=== PATIENT | female | born 1950 | race Caucasian/White ===

== ENCOUNTER 2021-11-29 09:20 | Inpatient (IN) | payer MEDICARE, OTHER ==
[~2021-11-29] VITALS: Ht 157.5 cm; Wt 68.2 kg
[~2021-11-29 09:20] MED LIST: ACET325T58 PO; ALBU18HF2 IH; ALEN1TAB PO; ALPR-624 PO; ASPI-1265 PO; BUDE10.23 IH; CHOL100044 PO; CYAN500T71 PO; DOCU100C41 PO; LEVE500T PO; LEVO100T46 PO; LISI1TAB51 PO; LOP25T PO; LORA10TA65 PO; OMEG500C PO; POTA-82 PO; PRAV80TA3 PO; SPIIN IH; TRAM50TA2 PO; VALA-7 PO
[2021-11-29] MEDS ORDERED: normal saline 1000ML IV soln IVB ONE (09:45)
[2021-11-29] MEDS: metoprolol tartrate 1mg/ml inj IV SCH ×4 (10:15→11:41)
[2021-11-29 10:32] LABS: BASOPHILS # (AUTO) 0.1 X10'3 (0-0.2); BASOPHILS % (AUTO) 0.7 % (0-1); EOSINOPHILS # (AUTO) 0.1 X10'3 (0-0.9); EOSINOPHILS % (AUTO) 0.7 % (0-6); HEMATOCRIT 35.1 % (35.0-45.0); HEMOGLOBIN 11.8 g/dl (12.0-16.0); LYMPHOCYTES # (AUTO) 1.1 X10'3 (1.1-4.8); LYMPHOCYTES % (AUTO) 11.1 % (21-51); MEAN CORPUSCULAR HEMOGLOBIN 30.5 PG (27.0-31.0); MEAN CORPUSCULAR HGB CONC 33.6 g/dL (33.0-36.5); MEAN CORPUSCULAR VOLUME 90.8 FL (78-98); MEAN PLATELET VOLUME 6.8 FL (7.4-10.4); MONOCYTES # (AUTO) 0.6 X10'3 (0-0.9); MONOCYTES % (AUTO) 6.1 % (2-12); NEUTROPHILS % (AUTO) 81.4 % (42-75); PLATELET COUNT 201 X10'3 (140-440); RED BLOOD COUNT 3.87 X10'6 (4.20-5.60); RED CELL DISTRIBUTION WIDTH 13.8 % (11.5-14.5); WHITE BLOOD COUNT 9.8 X10'3 (4.5-11.0)
[2021-11-29 10:51] LABS: ALANINE AMINOTRANSFERASE 35 U/L (12-78); ALBUMIN 3.3 G/DL (3.4-5.0); ALBUMIN/GLOBULIN RATIO 0.8 (1.1-1.5); ALKALINE PHOSPHATASE 103 IU/L (46-116); ANION GAP 8 (8-16); ASPARTATE AMINO TRANSFERASE 38 U/L (10-37); BILIRUBIN,TOTAL 0.3 MG/DL (0.1-1.0); BLOOD UREA NITROGEN 18 MG/DL (7-18); CALCIUM 9.8 MG/DL (8.5-10.1); CHLORIDE 105 MMOL/L (99-107); CREATININE 1.06 MG/DL (0.40-0.90); GLUCOSE 101 MG/DL (70-104); POTASSIUM 4.4 MMOL/L (3.5-5.1); SODIUM 140 MMOL/L (135-145); TOTAL CARBON DIOXIDE 27.4 MMOL/L (24-32); TOTAL PROTEIN 7.5 G/DL (6.4-8.2); eGFR 51 ML/MIN
[2021-11-29] MEDS ORDERED: LORazepam 0.5 MG tablet PO ONE (12:50)
--- NOTE | 2021-11-29 13:55 | NUR ---
dr valentino at bedside ,verbal orders to give lasix 40 mg iv once for fluid overload,give home med metoprol 25 mg po once ,informed MD that pt received total of 15 mg iv metoprol.as per its okay to give metoprol 25 mg po because that will maintain the pt HR.
[2021-11-29] MEDS ORDERED: metoprolol tartrate 50mg tablet PO ONE (14:00)
[2021-11-29] MEDS ORDERED: furosemide 10 MG/1 ML 10ml inj IV ONE (14:00)
[2021-11-29] MEDS ORDERED: metoprolol tartrate 25mg tablet PO ONE (14:05)
--- NOTE | 2021-11-29 14:05 | NUR ---
SBAR TO LEIGH BLISS.
[2021-11-29] MEDS ORDERED: magnesium 4gm in 100ml NS 100 ML IV PRN (14:20)
[2021-11-29] MEDS ORDERED: potassium CL 10mEq/100ml bag 100 ML IV PRN (14:20)
[2021-11-29] MEDS ORDERED: magnesium hydroxide 30ml (MOM) UD suspension PO PRN (14:20)
[2021-11-29] MEDS ORDERED: mag hydrox/Alum hydrox/simeth 30ml oral suspension PO PRN (14:20)
[2021-11-29] MEDS ORDERED: PERFLUTREN PROTEIN-A MICROSPHR (Optison) 0.22 MG/ML 3ML VIAL IV ONE (14:20)
[2021-11-29] MEDS ORDERED: magnesium 2GM in 50ml NS 50 ML IV PRN (14:20)
[2021-11-29] MEDS ORDERED: POTASSIUM BICARB 20meq eff tab 20 MEQ TABLET.EFF PO PRN ×2 (14:20)
[2021-11-29] MEDS ORDERED: ondansetron/PF 4mg/2ml inj IV PRN (14:20)
[2021-11-29] MEDS ORDERED: acetaminophen 325mg tablet PO PRN (14:20)
[2021-11-29] MEDS ORDERED: magnesium Cl slow-release 64mg tablet PO PRN (14:20)
[2021-11-29] MEDS ORDERED: METO50TA16 PO (14:29)
[2021-11-29] MEDS ORDERED: ALPR0.252 PO (14:29)
[2021-11-29] MEDS ORDERED: BUDE10.22 PO (14:29)
[2021-11-29] MEDS ORDERED: LEVO75TA7 PO (14:29)
[2021-11-29] MEDS ORDERED: LOSA1TAB36 PO (14:29)
[2021-11-29] MEDS ORDERED: FISH1CAP17 PO (14:33)
[2021-11-29] MEDS ORDERED: ASCO100T12 PO (14:40)
[2021-11-29] MEDS ORDERED: VITE1000C PO (14:40)
[2021-11-29] MEDS ORDERED: CALC600T26 PO (14:40)
[2021-11-29] MEDS ORDERED: ZINC100T2 PO (14:41)
[2021-11-29] MEDS ORDERED: MAGN400C PO (14:41)
[2021-11-29] MEDS ORDERED: MULT-1085 PO (14:41)
[2021-11-29] MEDS ORDERED: albuterol 2.5 MG/3 ML nebule NEB PRN (15:10)
[2021-11-29] MEDS ORDERED: ALPRAZolam 0.25mg tablet PO PRN (15:10)
--- NOTE | 2021-11-29 18:25 | NUR ---
ASSUMED CARE OF PATIENT AFTER RECIEVING REPORT. PT. RESTING QUIETLY IN GURNEY WITHOUT DISTRESS AT THIS TIME.
[2021-11-29] MEDS: K and/or MAG REPLACEMENT MC SCH (20:00)
[2021-11-29] MEDS ORDERED: metoprolol tartrate 25mg tablet PO SCH (20:00)
--- NOTE | 2021-11-29 20:30 | NUR ---
PATIENT IN MODERATE RESPIRATORY DISTRESS. SITTING UP IN [facility], ABLE TO SPEAK 5-6 WORDS AT A TIME, REQUESTING RT TREATMENT. RT PAGED. STAYED WITH PT. AND REASSURED UNTIL RT ARRIVED AND TREATMENT GIVEN.
[2021-11-29] MEDS: budesonide 0.5mg/2ml UD nebule IH SCH (20:31)
[2021-11-29] MEDS: albuterol 2.5 MG/3 ML nebule NEB SCH (20:31)
[2021-11-29] MEDS: docusate sod 100mg capsule PO SCH (20:35)
[2021-11-29] MEDS: furosemide 10 MG/1 ML 10ml inj IV SCH (20:35)
[2021-11-29] MEDS: metoprolol tartrate 50mg tablet PO SCH (20:40)
[2021-11-29] MEDS: enoxaparin 30mg/0.3ml syringe SQ SCH (20:41)
[2021-11-30] MEDS: pravastatin 40mg tablet PO SCH ×2 (00:34→20:27)
[2021-11-30] MEDS: albuterol 2.5 MG/3 ML nebule NEB SCH ×4 (02:39→20:39)
--- NOTE | 2021-11-30 06:53 | NUR ---
Report given to RUTHY Beauchamp in PCU.
--- NOTE | 2021-11-30 07:07 | NUR ---
Problems reprioritized. Patient report given, questions answered & plan of care reviewed with Kendall BLISS in ER. Pt arrived to unit. settled into room.. Addendum: 11/30/21 at 0724 by Azul Rain RN Amended: Links added.
[2021-11-30 08:00] VITALS: BP 121/83
[2021-11-30] MEDS: K and/or MAG REPLACEMENT MC SCH ×2 (08:00→20:52)
[2021-11-30] MEDS ORDERED: ZINC GLUCONATE 100 MG PO SCH (08:00)
[2021-11-30] MEDS: OMEGA-3/DHA/EPA/FISH OIL 1 EACH CAPSULE.DR PO SCH (08:00)
[2021-11-30] MEDS: multivitamins, therapeutics tablet PO SCH (08:00)
[2021-11-30] MEDS ORDERED: ASCORBIC ACID 100 MG PO SCH (08:00)
[2021-11-30] MEDS: budesonide 0.5mg/2ml UD nebule IH SCH ×2 (08:21→20:39)
[2021-11-30] MEDS: HYDROchlorothiazide 12.5mg capsule PO SCH (08:35)
[2021-11-30] MEDS: cholecalciferol (vitamin D3) 1,000 unit (25mcg) tablet PO SCH (08:35)
[2021-11-30] MEDS: losartan 50mg tablet PO SCH (08:36)
[2021-11-30] MEDS: metoprolol tartrate 50mg tablet PO SCH (08:37)
[2021-11-30] MEDS: docusate sod 100mg capsule PO SCH ×2 (08:37→20:26)
[2021-11-30] MEDS: magnesium oxide 400mg tablet PO SCH (08:38)
[2021-11-30] MEDS: cyanocobalamin 500mcg tablet PO SCH (08:38)
[2021-11-30] MEDS: calcium carbonate 500mg tablet PO SCH (08:38)
[2021-11-30] MEDS: enoxaparin 30mg/0.3ml syringe SQ SCH (08:40)
[2021-11-30] MEDS: furosemide 10 MG/1 ML 10ml inj IV SCH ×2 (08:40→22:13)
[2021-11-30] MEDS: levoTHYROXINE 75mcg tablet PO SCH (08:48)
[2021-11-30 09:18] LABS: BASOPHILS # (AUTO) 0.1 X10'3 (0-0.2); BASOPHILS % (AUTO) 0.8 % (0-1); EOSINOPHILS # (AUTO) 0.2 X10'3 (0-0.9); EOSINOPHILS % (AUTO) 3.3 % (0-6); HEMATOCRIT 35.8 % (35.0-45.0); HEMOGLOBIN 11.7 g/dl (12.0-16.0); LYMPHOCYTES # (AUTO) 1.6 X10'3 (1.1-4.8); LYMPHOCYTES % (AUTO) 21.6 % (21-51); MEAN CORPUSCULAR HEMOGLOBIN 30.2 PG (27.0-31.0); MEAN CORPUSCULAR HGB CONC 32.8 g/dL (33.0-36.5); MEAN CORPUSCULAR VOLUME 92.1 FL (78-98); MEAN PLATELET VOLUME 8.4 FL (7.4-10.4); MONOCYTES # (AUTO) 0.6 X10'3 (0-0.9); MONOCYTES % (AUTO) 7.4 % (2-12); NEUTROPHILS # (AUTO) 5.1 X10'3 (1.8-7.7); NEUTROPHILS % (AUTO) 66.9 % (42-75); PLATELET COUNT 203 X10'3 (140-440); RED BLOOD COUNT 3.88 X10'6 (4.20-5.60); WHITE BLOOD COUNT 7.6 X10'3 (4.5-11.0)
[2021-11-30 09:46] LABS: ALANINE AMINOTRANSFERASE 29 U/L (12-78); ALBUMIN 3.3 G/DL (3.4-5.0); ALBUMIN/GLOBULIN RATIO 0.8 (1.1-1.5); ALKALINE PHOSPHATASE 93 IU/L (46-116); ANION GAP 8 (8-16); ASPARTATE AMINO TRANSFERASE 30 U/L (10-37); BILIRUBIN,TOTAL 0.5 MG/DL (0.1-1.0); BLOOD UREA NITROGEN 19 MG/DL (7-18); BUN/CREATININE RATIO 17.8 (6.6-38.0); CALCIUM 9.3 MG/DL (8.5-10.1); CHLORIDE 101 MMOL/L (99-107); CREATININE 1.07 MG/DL (0.40-0.90); GLUCOSE 114 MG/DL (70-104); MAGNESIUM 1.9 MG/DL (1.5-2.4); POTASSIUM 3.3 MMOL/L (3.5-5.1); SODIUM 139 MMOL/L (135-145); TOTAL CARBON DIOXIDE 30.1 MMOL/L (24-32); TOTAL PROTEIN 7.4 G/DL (6.4-8.2); eGFR 50 ML/MIN
[2021-11-30] MEDS ORDERED: metoprolol tartrate 12.5mg (1/2 tablet) PO ONE (10:20)
[2021-11-30 11:29] VITALS: BP 94/53
[2021-11-30 15:00] VITALS: BP 103/70
--- NOTE | 2021-11-30 18:18 | NUR ---
Problems reprioritized. Patient report given, questions answered & plan of care reviewed with Suha BLISS. bedside report completed. Pt eating diner. Addendum: 11/30/21 at 1819 by Azul Rain RN Amended: Links added.
--- NOTE | 2021-11-30 18:24 | NUR ---
Patient in room PCU 3025. I have received report from Azul BLISS and had the opportunity to ask questions and assume patient care.
[2021-11-30] MEDS ORDERED: metoprolol tartrate 50mg tablet PO SCH (20:00)
[2021-11-30] MEDS: apixaban 5mg tablet PO SCH (20:25)
[2021-11-30] MEDS ORDERED: metoprolol tartrate 25mg tablet PO SCH (20:40)
[2021-12-01] MEDS: albuterol 2.5 MG/3 ML nebule NEB SCH ×3 (03:00→14:08)
[2021-12-01 06:00] VITALS: BP 98/54
--- NOTE | 2021-12-01 06:23 | NUR ---
Problems reprioritized. Patient report given, questions answered & plan of care reviewed with Azul BLISS.
--- NOTE | 2021-12-01 06:35 | NUR ---
Patient in room PCU 3025. I have received report from Kalani BLISS and had the opportunity to ask questions and assume patient care.Bedside report completed. Pt sleeping No distress, Call light in reach. Addendum: 12/01/21 at 0636 by Azul Rain RN Amended: Links added.
[2021-12-01 07:34] LABS: BASOPHILS % (AUTO) 0.7 % (0-1); EOSINOPHILS # (AUTO) 0.3 X10'3 (0-0.9); EOSINOPHILS % (AUTO) 5.3 % (0-6); HEMATOCRIT 36.7 % (35.0-45.0); HEMOGLOBIN 11.9 g/dl (12.0-16.0); LYMPHOCYTES # (AUTO) 1.5 X10'3 (1.1-4.8); LYMPHOCYTES % (AUTO) 24.4 % (21-51); MEAN CORPUSCULAR HGB CONC 32.5 g/dL (33.0-36.5); MEAN CORPUSCULAR VOLUME 92.2 FL (78-98); MONOCYTES # (AUTO) 0.6 X10'3 (0-0.9); MONOCYTES % (AUTO) 10.1 % (2-12); NEUTROPHILS # (AUTO) 3.7 X10'3 (1.8-7.7); NEUTROPHILS % (AUTO) 59.5 % (42-75); PLATELET COUNT 248 X10'3 (140-440); RED BLOOD COUNT 3.98 X10'6 (4.20-5.60); WHITE BLOOD COUNT 6.2 X10'3 (4.5-11.0)
[2021-12-01 07:44] LABS: ALANINE AMINOTRANSFERASE 26 U/L (12-78); ALBUMIN 3.2 G/DL (3.4-5.0); ALBUMIN/GLOBULIN RATIO 0.8 (1.1-1.5); ALKALINE PHOSPHATASE 89 IU/L (46-116); ANION GAP 3 (8-16); ASPARTATE AMINO TRANSFERASE 26 U/L (10-37); BILIRUBIN,TOTAL 0.5 MG/DL (0.1-1.0); BLOOD UREA NITROGEN 23 MG/DL (7-18); BUN/CREATININE RATIO 21.1 (6.6-38.0); CHLORIDE 98 MMOL/L (99-107); CREATININE 1.09 MG/DL (0.40-0.90); GLUCOSE 109 MG/DL (70-104); MAGNESIUM 2.2 MG/DL (1.5-2.4); POTASSIUM 3.9 MMOL/L (3.5-5.1); SODIUM 136 MMOL/L (135-145); TOTAL CARBON DIOXIDE 34.7 MMOL/L (24-32); TOTAL PROTEIN 7.3 G/DL (6.4-8.2); eGFR 49 ML/MIN
[2021-12-01] MEDS: apixaban 5mg tablet PO SCH (07:58)
[2021-12-01] MEDS: HYDROchlorothiazide 12.5mg capsule PO SCH (07:59)
[2021-12-01] MEDS: losartan 50mg tablet PO SCH (07:59)
[2021-12-01] MEDS: levoTHYROXINE 75mcg tablet PO SCH (08:01)
[2021-12-01] MEDS: cyanocobalamin 500mcg tablet PO SCH (08:03)
[2021-12-01] MEDS: multivitamins, therapeutics tablet PO SCH (08:03)
[2021-12-01] MEDS: cholecalciferol (vitamin D3) 1,000 unit (25mcg) tablet PO SCH (08:03)
[2021-12-01] MEDS: magnesium oxide 400mg tablet PO SCH (08:03)
[2021-12-01] MEDS: calcium carbonate 500mg tablet PO SCH (08:04)
[2021-12-01] MEDS: OMEGA-3/DHA/EPA/FISH OIL 1 EACH CAPSULE.DR PO SCH (08:04)
[2021-12-01] MEDS: docusate sod 100mg capsule PO SCH (08:04)
[2021-12-01] MEDS: furosemide 10 MG/1 ML 10ml inj IV SCH (08:06)
[2021-12-01] MEDS: budesonide 0.5mg/2ml UD nebule IH SCH (08:22)
[2021-12-01 11:00] VITALS: BP 113/56
--- NOTE | 2021-12-01 12:35 | NUR ---
PAGER ID: [phone] MESSAGE: [id number] Homer O2 sat 92 on 2L NC. HR [address] Scott is aware of her high HR and is not worried. She feels she could go home today.
[2021-12-01] MEDS ORDERED: LOP25T PO (12:53)
[2021-12-01] MEDS ORDERED: APIX5TAB3 PO (12:53)
[2021-12-01] MEDS ORDERED: FURO40TA4 PO (12:53)
[2021-12-01] MEDS ORDERED: PRED10TA23 PO (12:53)
[2021-12-01] MEDS ORDERED: POTA-207 PO (12:53)
[2021-12-01] MEDS ORDERED: metoprolol tartrate 25mg tablet PO SCH (14:02)
--- NOTE | 2021-12-01 14:54 | NUR ---
All written and verbal orders for D/C given, All questions answered. Pt D/C to home. Pt stated she had all belongings, all credit cards accounted for. FWW delivered to room. Pt had boyfriend bring her home o2 tank. Pt left via W/C. Addendum: 12/01/21 at 1458 by Azul Rain RN Amended: Links added.
== END 2021-12-01 14:58 | disposition home health service (06) | DRG 280 ==
LOC: ER 09:20 → ED HOLD 14:23 → PCU 3S 11-30 07:07
PROVIDERS: ADMIT Family Medicine; ATTEND Family Medicine
DX: I11.0 Hypertensive heart disease with heart failure (principal); I21.A1 Myocardial infarction type 2; I50.23 Acute on chronic systolic (congestive) heart failure; J96.10 Chronic respiratory failure, unspecified whether with hypoxia or hypercapnia; E03.9 Hypothyroidism, unspecified; E78.5 Hyperlipidemia, unspecified; G40.909 Epilepsy, unspecified, not intractable, without status epilepticus; I48.91 Unspecified atrial fibrillation; J44.9 Chronic obstructive pulmonary disease, unspecified; M81.0 Age-related osteoporosis without current pathological fracture; Z82.49 Family history of ischemic heart disease and other diseases of the circulatory system; Z83.3 Family history of diabetes mellitus; Z87.891 Personal history of nicotine dependence; Z86.73 Personal history of transient ischemic attack (TIA), and cerebral infarction without residual deficits; Z88.2 Allergy status to sulfonamides; Z88.8 Allergy status to other drugs, medicaments and biological substances
CPT/HCPCS: 36415; 71045; 80053; 83735; 83880; 84484; 85025; 93005; 93306; 94640; 94760; 96374; 96375; 96376; 97161; 97530; 99285; A4615; G0378; J1650; J1940; J3490; J7030

== ENCOUNTER 2022-04-12 20:47 | Inpatient (IN) | payer MEDICARE, OTHER ==
[~2022-04-12] VITALS: Ht 165.1 cm; Wt 77.7 kg
[~2022-04-12 20:47] MED LIST changes: -ACET325T58 PO; -ALEN1TAB PO; -ALPR-624 PO; +ALPR0.252 PO; +APIX5TAB3 PO; +ASCO100T12 PO; -ASPI-1265 PO; +BUDE10.22 PO; -BUDE10.23 IH; +CALC600T26 PO; -DOCU100C41 PO; +FISH1CAP17 PO; -LEVE500T PO; -LEVO100T46 PO; +LEVO75TA7 PO; -LISI1TAB51 PO; -LORA10TA65 PO; +LOSA1TAB36 PO; +MAGN400C PO; +MULT-1085 PO; -OMEG500C PO; -POTA-82 PO; -SPIIN IH; -TRAM50TA2 PO; -VALA-7 PO; +ZINC100T2 PO
[2022-04-12] MEDS ORDERED: nitroGLYCERIN-Tridil 50MG/D5W 250 ML IV PRN (20:55)
[2022-04-12] MEDS ORDERED: methylPREDNISolone sod succ 125mg/2ml vial IV ONE (20:55)
[2022-04-12] MEDS ORDERED: furosemide 10 MG/1 ML 10ml inj IV ONE (20:55)
[2022-04-12] MEDS ORDERED: temazepam 15mg capsule PO PRN (21:00)
[2022-04-12 21:09] LABS: BASOPHILS # (AUTO) 0.1 X10'3 (0-0.2); BASOPHILS % (AUTO) 0.7 % (0-1); EOSINOPHILS # (AUTO) 0.3 X10'3 (0-0.9); EOSINOPHILS % (AUTO) 1.6 % (0-6); HEMOGLOBIN 11.9 g/dl (12.0-16.0); LYMPHOCYTES # (AUTO) 4.1 X10'3 (1.1-4.8); LYMPHOCYTES % (AUTO) 23.3 % (21-51); MEAN CORPUSCULAR HEMOGLOBIN 30.7 PG (27.0-31.0); MEAN CORPUSCULAR HGB CONC 32.9 g/dL (33.0-36.5); MEAN CORPUSCULAR VOLUME 93.3 FL (78-98); MEAN PLATELET VOLUME 7.2 FL (7.4-10.4); MONOCYTES # (AUTO) 1.1 X10'3 (0-0.9); MONOCYTES % (AUTO) 6.5 % (2-12); NEUTROPHILS # (AUTO) 11.8 X10'3 (1.8-7.7); NEUTROPHILS % (AUTO) 67.9 % (42-75); PLATELET COUNT 398 X10'3 (140-440); RED BLOOD COUNT 3.86 X10'6 (4.20-5.60); RED CELL DISTRIBUTION WIDTH 14.2 % (11.5-14.5); WHITE BLOOD COUNT 17.4 X10'3 (4.5-11.0)
[2022-04-12 21:19] LABS: ALANINE AMINOTRANSFERASE 50 U/L (12-78); ALBUMIN 3.6 G/DL (3.4-5.0); ALBUMIN/GLOBULIN RATIO 0.9 (1.1-1.5); ALKALINE PHOSPHATASE 111 IU/L (46-116); ANION GAP 10 (8-16); ASPARTATE AMINO TRANSFERASE 47 U/L (10-37); BILIRUBIN,TOTAL 0.4 MG/DL (0.1-1.0); BLOOD UREA NITROGEN 22 MG/DL (7-18); BUN/CREATININE RATIO 16.9 (6.6-38.0); CALCIUM 9.9 MG/DL (8.5-10.1); CHLORIDE 107 MMOL/L (99-107); GLUCOSE 270 MG/DL (70-104); POTASSIUM 4.6 MMOL/L (3.5-5.1); SODIUM 141 MMOL/L (135-145); TOTAL PROTEIN 7.7 G/DL (6.4-8.2); eGFR 40 ML/MIN
--- NOTE | 2022-04-12 22:02 | NUR ---
Howie Olson family member # [phone]
[2022-04-12] MEDS ORDERED: metoprolol tartrate 1mg/ml inj IV ONE (22:50)
[2022-04-12] MEDS ORDERED: CefTRIAXone/D5W-Rocephin 1gm 50 ML IV ONE (22:50)
[2022-04-12] MEDS ORDERED: metoprolol tartrate 25mg tablet PO ONE (22:55)
[2022-04-12] MEDS ORDERED: potassium Cl 40MEQ/1/2NS 520ml 520 ML IV PRN (23:30)
[2022-04-12] MEDS ORDERED: magnesium 4gm in 100ml NS 100 ML IV PRN (23:30)
[2022-04-12] MEDS ORDERED: magnesium Cl slow-release 64mg tablet PO PRN (23:30)
[2022-04-12] MEDS ORDERED: potassium Cl 20 mEq SR tablet PO PRN ×2 (23:30)
[2022-04-12 23:34] LABS: CLARITY,URINE SLIGHTLY CLOUDY (Clear); COLOR,URINE YELLOW (Yellow); GLUCOSE, URINE NEGATIVE (Neg); KETONES,URINE NEGATIVE (Neg); LEUKOCYTE ESTERASE ,URINE SMALL (Neg); NITRITES, URINE NEGATIVE (Neg); OCCULT BLOOD,URINE SMALL (Neg); PH,URINE 5.5 (4.8-8.0); PROTEIN,URINE 30 mg/dl (Neg); UROBILINOGEN,URINE 0.2 E.U/dL (0.2-1.0)
[2022-04-12 23:42] LABS: UA COLLECTION TYPE CLN CATCH MIDSTREAM
[2022-04-12 23:46] LABS: RBC,URINE 0-2 /HPF (0-2); SQUAMOUS EPITHELIAL CELL,UR FEW /LPF (FEW)
[2022-04-12 23:47] LABS: BACTERIA,URINE FEW /HPF (Neg); HYALINE CASTS 0-3 /LPF (NEGATIVE); MUCUS STRANDS FEW /LPF (Neg); TRANSITIONAL EPI CELLS,URINE FEW /HPF; WBC CLUMPS,URINE FEW /HPF (NEGATIVE)
[2022-04-13] VITALS (11 sets, daily range): BP systolic 90–143; BP diastolic 60–87
[2022-04-13] MEDS ORDERED: aspirin 81mg tab.chew PO ONE (00:30)
--- NOTE | 2022-04-13 01:24 | NUR ---
TERRY ID: [id number] MESSAGE: DR. SANTIAGO PLEASE CALL TRACE AT [phone] REGARDING NEW PT, CLEMENTE MULLEN IN 3018 WITH CRITICAL TROPONINS. NO CP THOUGH AND CHF/AFIB HX. MATTI GOT ASA IN ER CALL [phone]
--- NOTE | 2022-04-13 01:25 | NUR ---
Patient arrived from ER via gurney at . Patient placed in bed with the head of the bed in high fowlers position. Patient alert and oriented times four. Call light within reach and all personal belongings within reach.
--- NOTE | 2022-04-13 01:33 | NUR ---
Received one time order for wt based Lovenox from Dr. Villegas since she has critical troponin and MD is aware of the troponin numbers.
[2022-04-13] MEDS ORDERED: enoxaparin 80mg/0.8ml syringe SUBCUT ONE (01:35)
[2022-04-13] MEDS: ALPRAZolam 0.25mg tablet PO PRN ×2 (02:17→22:38)
--- NOTE | 2022-04-13 05:20 | NUR ---
Patient in bed with the head of the bed elevated on bipap, resting with her eyes closed. Patient has no signs or symptoms of distress. Call light within reach and all personal belongings within reach.
--- NOTE | 2022-04-13 07:01 | NUR ---
Patient in room PCU 3018. I have received report from RUTHY VILLALPANDO, and had the opportunity to ask questions and assume patient care.
[2022-04-13] MEDS: heparin 10,000 units/1 ML INJ IV ONE ×2 (07:20→23:20)
[2022-04-13] MEDS ORDERED: heparin 10,000 units/1 ML INJ IV PRN (07:20)
[2022-04-13] MEDS ORDERED: heparin 10,000 units/1 ML INJ IV ONE (07:25)
[2022-04-13] MEDS: K and/or MAG REPLACEMENT MC SCH ×2 (08:00→20:00)
[2022-04-13 08:01] LABS: BASOPHILS % (AUTO) 0.2 % (0-1); EOSINOPHILS % (AUTO) 0 % (0-6); HEMATOCRIT 33.7 % (35.0-45.0); HEMOGLOBIN 11.3 g/dl (12.0-16.0); LYMPHOCYTES # (AUTO) 0.6 X10'3 (1.1-4.8); MEAN CORPUSCULAR HEMOGLOBIN 30.8 PG (27.0-31.0); MEAN CORPUSCULAR HGB CONC 33.5 g/dL (33.0-36.5); MEAN CORPUSCULAR VOLUME 92.1 FL (78-98); MONOCYTES # (AUTO) 0.1 X10'3 (0-0.9); MONOCYTES % (AUTO) 1.2 % (2-12); NEUTROPHILS # (AUTO) 7.3 X10'3 (1.8-7.7); NEUTROPHILS % (AUTO) 90.6 % (42-75); PLATELET COUNT 317 X10'3 (140-440); RED BLOOD COUNT 3.66 X10'6 (4.20-5.60); RED CELL DISTRIBUTION WIDTH 14.5 % (11.5-14.5)
[2022-04-13 08:08] LABS: APTT 28 SECONDS (22-32)
[2022-04-13 08:10] LABS: ALBUMIN 3.5 G/DL (3.4-5.0); ANION GAP 10 (8-16); BLOOD UREA NITROGEN 23 MG/DL (7-18); BUN/CREATININE RATIO 16.2 (6.6-38.0); CALCIUM 9.6 MG/DL (8.5-10.1); CHLORIDE 104 MMOL/L (99-107); CREATININE 1.42 MG/DL (0.40-0.90); GLUCOSE 187 MG/DL (70-104); POTASSIUM 4.7 MMOL/L (3.5-5.1); SODIUM 139 MMOL/L (135-145); TOTAL CARBON DIOXIDE 25.4 MMOL/L (24-32); eGFR 36 ML/MIN
[2022-04-13] MEDS: ipratropium/albuterol 3ml nebule NEB PRN ×2 (08:11→17:07)
[2022-04-13] MEDS: heparin 25,000 UNIT/250ml bag 250 ML IV PRN (09:09)
[2022-04-13] MEDS ORDERED: furosemide 40mg/4ml inj IV ONE (10:10)
[2022-04-13] MEDS: azithromycin/NS 500mg/250ml 250 ML IV SCH (10:42)
[2022-04-13] MEDS ORDERED: PERFLUTREN PROTEIN-A MICROSPHR (Optison) 0.22 MG/ML 3ML VIAL IV ONE (11:55)
[2022-04-13] MEDS ORDERED: amiodarone 150mg/dext, iso-os 100 ML IV ONE (15:20)
[2022-04-13] MEDS: amiodarone/D5 360MG/200ML BAG 200 ML IV SCH ×2 (15:49→20:01)
[2022-04-13] MEDS: metoprolol tartrate 1mg/ml inj IV SCH ×3 (16:05→16:30)
--- NOTE | 2022-04-13 19:01 | NUR ---
GIN POLE OPERATOR INFORMED THIS NURSE THAT PT'S HR WAS IN THE 130'S. DR. GARCIA'S CALL SERVICE REACHED AND THIS MESSAGE WAS LEFT. RECEIVED ORDERS: 250ML NS BOLUS, IV AMIODARONE BOLUS AND CONTINUE TO FOLLOW PROTOCOL, METOPROLOL 5MG IV TO BE GIVEN X3 - HOLD FOR BP <100, PBNP, 12 LEAD EKG. HEPARIN WAS STOPPED PT ONLY HAD 1 IV AND HEPARIN AND AMIODARONE ARE INCOMPATIBLE. SECOND IV, 20 GAUGE PLACED IN RFA. BP BOX ADDED TO PT'S TELE BOX.
--- NOTE | 2022-04-13 19:07 | NUR ---
Problems reprioritized. Patient report given, questions answered & plan of care reviewed with RUTHY VILLALPANDO.
[2022-04-13] MEDS: furosemide 40mg/4ml inj IV SCH (19:52)
[2022-04-13] MEDS: metoprolol tartrate 25mg tablet PO SCH (19:53)
[2022-04-13] MEDS: CefTRIAXone/D5W-Rocephin 1gm 50 ML IV SCH (22:00)
--- NOTE | 2022-04-13 22:48 | NUR ---
CALLED PHARMACY TO SEE WHEN RESULT WILL BE READY FOR 2244 PTT, SPOKE TO GARTH IN THE LAB AND SHE STATED THAT THE SPECIMEN IS PROCESSING AND WILL BE FINISHED SHORTLY
[2022-04-13] MEDS: heparin 10,000 units/1 ML INJ IV PRN (23:30)
[2022-04-14] VITALS (10 sets, daily range): BP systolic 117–129; BP diastolic 58–92
--- NOTE | 2022-04-14 05:27 | NUR ---
ballpoint pen assembly machine operator have collected ptt am lab and sent down to pharmacy per charge nurse ojse
[2022-04-14 05:47] LABS: BASOPHILS % (AUTO) 0.2 % (0-1); EOSINOPHILS % (AUTO) 0.1 % (0-6); HEMATOCRIT 34.4 % (35.0-45.0); HEMOGLOBIN 11.7 g/dl (12.0-16.0); LYMPHOCYTES # (AUTO) 1.6 X10'3 (1.1-4.8); LYMPHOCYTES % (AUTO) 14.5 % (21-51); MEAN CORPUSCULAR HGB CONC 33.9 g/dL (33.0-36.5); MEAN CORPUSCULAR VOLUME 91.6 FL (78-98); MEAN PLATELET VOLUME 6.8 FL (7.4-10.4); MONOCYTES # (AUTO) 0.9 X10'3 (0-0.9); MONOCYTES % (AUTO) 8.6 % (2-12); NEUTROPHILS # (AUTO) 8.4 X10'3 (1.8-7.7); NEUTROPHILS % (AUTO) 76.6 % (42-75); PLATELET COUNT 312 X10'3 (140-440); RED BLOOD COUNT 3.75 X10'6 (4.20-5.60); RED CELL DISTRIBUTION WIDTH 14.2 % (11.5-14.5)
--- NOTE | 2022-04-14 05:50 | NUR ---
Patient in bed with the head of the bed elevated to semi-fowlers position resting with her eyes closed. Patient has no signs symptoms of distress, call light within reach and all personal belongings within reach
[2022-04-14 05:54] LABS: ALBUMIN 3.5 G/DL (3.4-5.0); ANION GAP 4 (8-16); BLOOD UREA NITROGEN 30 MG/DL (7-18); BUN/CREATININE RATIO 23.6 (6.6-38.0); CALCIUM 9.1 MG/DL (8.5-10.1); CHLORIDE 103 MMOL/L (99-107); CREATININE 1.27 MG/DL (0.40-0.90); GLUCOSE 120 MG/DL (70-104); MAGNESIUM 2.3 MG/DL (1.5-2.4); POTASSIUM 4.2 MMOL/L (3.5-5.1); SODIUM 139 MMOL/L (135-145); TOTAL CARBON DIOXIDE 31.8 MMOL/L (24-32); eGFR 41 ML/MIN
--- NOTE | 2022-04-14 06:02 | NUR ---
Called lab to se if ptt specimen made it to the lab, Cynthia in the lab stated that its being processed.
--- NOTE | 2022-04-14 06:34 | NUR ---
Patient in room PCU 3018B. I have received report from Vega BLISS and had the opportunity to ask questions and assume patient care. Pt is laying semi fowlers in bed. Pt on 2L NC. No s/s of distress, no s/s of pain at this time. Pt on Heparin GTT running @ 1000u/hr, 10ml/hr. Will review resulted cardiac PTT results and titrate per protocol. Please see interventions. Pt on Amio GTT running @0.5mg, 16.67ml/hr. No s/s of abnormal rhythm changes, Pt tolerating well. BLL, call light wihin reach, frequently used items in reach, frequent rounidng, waterworks operator socks on. Will continue to [facility].
[2022-04-14] MEDS: heparin 10,000 units/1 ML INJ IV PRN ×2 (07:06→20:54)
[2022-04-14] MEDS: azithromycin/NS 500mg/250ml 250 ML IV SCH (08:00)
[2022-04-14] MEDS: K and/or MAG REPLACEMENT MC SCH ×2 (08:00→20:00)
[2022-04-14] MEDS: ipratropium/albuterol 3ml nebule NEB PRN ×2 (08:41→20:02)
[2022-04-14] MEDS: furosemide 40mg/4ml inj IV SCH ×2 (09:28→20:45)
[2022-04-14] MEDS: aspirin 81mg, enteric-coated 1 TAB TABLET.DR PO SCH (09:29)
[2022-04-14] MEDS: metoprolol tartrate 25mg tablet PO SCH ×2 (09:29→20:46)
[2022-04-14] MEDS: acetaminophen 325mg tablet PO PRN (09:29)
[2022-04-14] MEDS: atorvastatin 20mg tablet PO SCH (09:30)
[2022-04-14] MEDS ORDERED: furosemide 40mg/4ml inj IV ONE (10:30)
[2022-04-14] MEDS ORDERED: potassium Cl 20 mEq SR tablet PO ONE (10:30)
[2022-04-14] MEDS: ondansetron/PF 4mg/2ml inj IV PRN (12:08)
[2022-04-14] MEDS: heparin 25,000 UNIT/250ml bag 250 ML IV PRN ×2 (12:19→18:48)
--- NOTE | 2022-04-14 13:46 | NUR ---
1300 Cardiac ptt still pending at this time. Will continue to monitor. Addendum: 04/14/22 at 1414 by Sherron Gaston RN Crit aPTT of 93. Heparin GTT shut off per protocol.
--- NOTE | 2022-04-14 14:14 | NUR ---
PAGER ID: [phone] MESSAGE: Mirna Coronel 3018B- Body Technician aPTT of 92. Heparin GTT turned off per protocol. aPTT redraw in 2 hours. -Sherron EXT [phone]
[2022-04-14] MEDS: amiodarone/D5 360MG/200ML BAG 200 ML IV SCH ×2 (15:43→22:05)
--- NOTE | 2022-04-14 18:04 | NUR ---
aPTT lab result still pending.
--- NOTE | 2022-04-14 18:28 | NUR ---
Problems reprioritized. Patient report given, questions answered & plan of care reviewed with America BLISS.
[2022-04-14] MEDS ORDERED: APIX5TAB3 PO (18:31)
[2022-04-14] MEDS ORDERED: FURO40TA4 PO (18:32)
[2022-04-14] MEDS ORDERED: POTA-207 PO (18:32)
[2022-04-14] MEDS ORDERED: METO50TA16 PO (18:33)
[2022-04-14] MEDS ORDERED: ASPI-611 PO (19:00)
[2022-04-14] MEDS ORDERED: TIOT18CA3 IH (19:01)
[2022-04-14] MEDS ORDERED: OMEG-5 PO (19:02)
[2022-04-14] MEDS ORDERED: ASCO-139 PO (19:04)
[2022-04-14] MEDS ORDERED: FOLI0.4T14 PO (19:05)
[2022-04-14] MEDS ORDERED: [UNRECOGNIZED DRUG - OTHER] PO (19:05)
[2022-04-14] MEDS: ALPRAZolam 0.25mg tablet PO PRN (21:00)
[2022-04-14] MEDS: CefTRIAXone/D5W-Rocephin 1gm 50 ML IV SCH (22:34)
[2022-04-15] VITALS (9 sets, daily range): BP systolic 110–169; BP diastolic 49–87
[2022-04-15 01:23] LABS: APTT 76 SECONDS (22-32)
[2022-04-15] MEDS: heparin 25,000 UNIT/250ml bag 250 ML IV PRN ×3 (02:32→17:40)
[2022-04-15] MEDS: amiodarone/D5 360MG/200ML BAG 200 ML IV SCH ×4 (04:09→22:21)
--- NOTE | 2022-04-15 06:48 | NUR ---
Patient in room PCU 3018B. I have received report from America BLISS and had the opportunity to ask questions and assume patient care.
[2022-04-15 07:01] LABS: BASOPHILS % (AUTO) 0.5 % (0-1); EOSINOPHILS # (AUTO) 0.3 X10'3 (0-0.9); EOSINOPHILS % (AUTO) 3.2 % (0-6); HEMATOCRIT 37.5 % (35.0-45.0); HEMOGLOBIN 12.5 g/dl (12.0-16.0); LYMPHOCYTES # (AUTO) 1.7 X10'3 (1.1-4.8); LYMPHOCYTES % (AUTO) 18.2 % (21-51); MEAN CORPUSCULAR HEMOGLOBIN 30.8 PG (27.0-31.0); MEAN CORPUSCULAR HGB CONC 33.4 g/dL (33.0-36.5); MEAN CORPUSCULAR VOLUME 92.3 FL (78-98); MEAN PLATELET VOLUME 7.2 FL (7.4-10.4); MONOCYTES # (AUTO) 0.7 X10'3 (0-0.9); MONOCYTES % (AUTO) 7.6 % (2-12); NEUTROPHILS # (AUTO) 6.7 X10'3 (1.8-7.7); NEUTROPHILS % (AUTO) 70.5 % (42-75); PLATELET COUNT 359 X10'3 (140-440); RED BLOOD COUNT 4.06 X10'6 (4.20-5.60); RED CELL DISTRIBUTION WIDTH 14.4 % (11.5-14.5); WHITE BLOOD COUNT 9.5 X10'3 (4.5-11.0)
[2022-04-15 07:09] LABS: APTT 39 SECONDS (22-32)
[2022-04-15 07:15] LABS: ALBUMIN 3.5 G/DL (3.4-5.0); ANION GAP 4 (8-16); BLOOD UREA NITROGEN 26 MG/DL (7-18); BUN/CREATININE RATIO 18.7 (6.6-38.0); CALCIUM 9.2 MG/DL (8.5-10.1); CHLORIDE 100 MMOL/L (99-107); CREATININE 1.39 MG/DL (0.40-0.90); GLUCOSE 133 MG/DL (70-104); MAGNESIUM 2.1 MG/DL (1.5-2.4); POTASSIUM 3.7 MMOL/L (3.5-5.1); SODIUM 138 MMOL/L (135-145); eGFR 37 ML/MIN
[2022-04-15] MEDS ORDERED: ALPRAZolam 0.25mg tablet PO PRN (07:40)
[2022-04-15] MEDS: heparin 10,000 units/1 ML INJ IV PRN (07:53)
[2022-04-15] MEDS: K and/or MAG REPLACEMENT MC SCH ×2 (08:00→18:37)
[2022-04-15] MEDS ORDERED: [UNRECOGNIZED DRUG - OTHER] PO SCH (08:00)
[2022-04-15] MEDS: metoprolol tartrate 25mg tablet PO SCH ×2 (08:00→19:28)
[2022-04-15] MEDS: azithromycin/NS 500mg/250ml 250 ML IV SCH (08:00)
[2022-04-15] MEDS: potassium Cl 20 mEq SR tablet PO SCH (08:00)
[2022-04-15] MEDS: levoTHYROXINE 75mcg tablet PO SCH (08:00)
[2022-04-15] MEDS: atorvastatin 20mg tablet PO SCH (08:42)
[2022-04-15] MEDS: aspirin 81mg, enteric-coated 1 TAB TABLET.DR PO SCH (08:42)
[2022-04-15] MEDS: cholecalciferol (vitamin D3) 1,000 unit (25mcg) tablet PO SCH (08:43)
[2022-04-15] MEDS: ascorbic acid 500mg tablet PO SCH (08:44)
[2022-04-15] MEDS: albuterol 2.5 MG/3 ML nebule NEB SCH ×3 (09:57→20:18)
[2022-04-15] MEDS: budesonide 0.5mg/2ml UD nebule IH SCH ×2 (09:57→20:18)
[2022-04-15] MEDS: ipratropium 0.5 MG/2.5ML nebule NEB SCH (09:57)
[2022-04-15] MEDS: furosemide 40mg/4ml inj IV SCH (10:42)
[2022-04-15] MEDS: folic acid 0.4mg tablet PO SCH (10:43)
[2022-04-15] MEDS: HYDROchlorothiazide 12.5mg capsule PO SCH (10:43)
[2022-04-15] MEDS: losartan 50mg tablet PO SCH (10:44)
[2022-04-15] MEDS: OMEGA-3/DHA/EPA/FISH OIL 1 EACH CAPSULE.DR PO SCH (10:44)
[2022-04-15] MEDS: ondansetron/PF 4mg/2ml inj IV PRN (11:52)
[2022-04-15] MEDS: ALPRAZolam 0.25mg tablet PO PRN (11:53)
[2022-04-15] MEDS: acetaminophen 325mg tablet PO PRN (17:34)
--- NOTE | 2022-04-15 17:47 | NUR ---
patient complained of dizzness, nauesa after the antibotic. I gave patient zofran and xanax. patient had several doses of this antibotic in the last couple days. patient stated she felt much better after the zofran and xanax. patients ptt 1400 was 118. Held drip for 120min and restarted drip at 1740 decreasing by 3 units/kg/hour which is now going at 900 units/kg/hour. gave patient tylenol 650 for headace at 1740pm. patient still has amino drip. I spoke with dr valentino and dr cook. both stated dr maurice is covering patient. could not get a hold of dr maurice.
[2022-04-15] MEDS: CefTRIAXone/D5W-Rocephin 1gm 50 ML IV SCH (22:45)
[2022-04-16] MEDS: heparin 10,000 units/1 ML INJ IV PRN ×2 (01:40→10:42)
[2022-04-16] MEDS: heparin 25,000 UNIT/250ml bag 250 ML IV PRN ×3 (01:42→23:35)
[2022-04-16] MEDS: albuterol 2.5 MG/3 ML nebule NEB SCH ×4 (02:37→20:32)
[2022-04-16] MEDS: amiodarone/D5 360MG/200ML BAG 200 ML IV SCH (04:25)
[2022-04-16 06:00] VITALS: BP 104/66
--- NOTE | 2022-04-16 06:49 | NUR ---
Patient in room PCU 3018B. I have received report from America BLISS and had the opportunity to ask questions and assume patient care.
[2022-04-16] MEDS: budesonide 0.5mg/2ml UD nebule IH SCH ×2 (07:35→20:32)
[2022-04-16] MEDS: ipratropium 0.5 MG/2.5ML nebule NEB SCH (07:35)
[2022-04-16 08:00] VITALS: BP 124/54
[2022-04-16] MEDS ORDERED: furosemide 40mg/4ml inj IV SCH (08:00)
[2022-04-16] MEDS: folic acid 0.4mg tablet PO SCH (08:00)
[2022-04-16 08:40] LABS: BASOPHILS # (AUTO) 0.1 X10'3 (0-0.2); BASOPHILS % (AUTO) 0.6 % (0-1); EOSINOPHILS # (AUTO) 0.3 X10'3 (0-0.9); EOSINOPHILS % (AUTO) 2.9 % (0-6); HEMATOCRIT 37.8 % (35.0-45.0); HEMOGLOBIN 12.4 g/dl (12.0-16.0); LYMPHOCYTES # (AUTO) 1.6 X10'3 (1.1-4.8); LYMPHOCYTES % (AUTO) 15.9 % (21-51); MEAN CORPUSCULAR HEMOGLOBIN 30.4 PG (27.0-31.0); MEAN CORPUSCULAR HGB CONC 32.7 g/dL (33.0-36.5); MEAN PLATELET VOLUME 6.6 FL (7.4-10.4); MONOCYTES # (AUTO) 0.9 X10'3 (0-0.9); MONOCYTES % (AUTO) 9.2 % (2-12); NEUTROPHILS # (AUTO) 7.1 X10'3 (1.8-7.7); NEUTROPHILS % (AUTO) 71.4 % (42-75); PLATELET COUNT 330 X10'3 (140-440); RED BLOOD COUNT 4.07 X10'6 (4.20-5.60); RED CELL DISTRIBUTION WIDTH 14.5 % (11.5-14.5)
[2022-04-16] MEDS: azithromycin 250mg tablet PO SCH (08:51)
[2022-04-16 08:52] LABS: APTT 22 SECONDS (22-32)
[2022-04-16] MEDS: metoprolol tartrate 25mg tablet PO SCH ×2 (08:53→20:34)
[2022-04-16] MEDS: ascorbic acid 500mg tablet PO SCH (08:53)
[2022-04-16] MEDS: HYDROchlorothiazide 12.5mg capsule PO SCH (08:54)
[2022-04-16] MEDS: cholecalciferol (vitamin D3) 1,000 unit (25mcg) tablet PO SCH (08:54)
[2022-04-16] MEDS: atorvastatin 20mg tablet PO SCH (08:54)
[2022-04-16] MEDS: OMEGA-3/DHA/EPA/FISH OIL 1 EACH CAPSULE.DR PO SCH (08:55)
[2022-04-16] MEDS: losartan 50mg tablet PO SCH (08:55)
[2022-04-16] MEDS: levoTHYROXINE 75mcg tablet PO SCH (08:55)
[2022-04-16] MEDS: aspirin 81mg, enteric-coated 1 TAB TABLET.DR PO SCH (08:55)
[2022-04-16 08:58] LABS: ALBUMIN 2.8 G/DL (3.4-5.0); ANION GAP 9 (8-16); BLOOD UREA NITROGEN 32 MG/DL (7-18); BUN/CREATININE RATIO 18.1 (6.6-38.0); CHLORIDE 95 MMOL/L (99-107); CREATININE 1.77 MG/DL (0.40-0.90); GLUCOSE 117 MG/DL (70-104); MAGNESIUM 2.1 MG/DL (1.5-2.4); POTASSIUM 3.2 MMOL/L (3.5-5.1); SODIUM 132 MMOL/L (135-145); TOTAL CARBON DIOXIDE 28.5 MMOL/L (24-32); eGFR 28 ML/MIN
[2022-04-16] MEDS: amiodarone 200mg tablet PO SCH ×2 (09:28→20:34)
[2022-04-16 10:00] VITALS: BP 114/52
[2022-04-16 12:00] VITALS: BP 118/53
[2022-04-16] MEDS ORDERED: methylPREDNISolone sod succ 125mg/2ml vial IV ONE (12:30)
[2022-04-16] MEDS: ALPRAZolam 0.25mg tablet PO PRN (14:15)
[2022-04-16] MEDS: ipratropium/albuterol 3ml nebule NEB SCH ×3 (15:00→23:00)
[2022-04-16] MEDS: methylPREDNISolone sod succ 125mg/2ml vial IV SCH ×2 (16:27→20:34)
[2022-04-16] MEDS: potassium Cl 20 mEq SR tablet PO SCH (16:28)
[2022-04-16] MEDS: K and/or MAG REPLACEMENT MC SCH ×2 (18:40→18:43)
--- NOTE | 2022-04-16 19:26 | NUR ---
Problems reprioritized. Patient report given to kolton bryson , questions answered & plan of care reviewed with .
--- NOTE | 2022-04-16 19:27 | NUR ---
patient did not go for cath today. patient was given steroids and per cath dr will try patient tomorrow. stopped amnio drip at 1100am today. patient iv came out and a new iv was interserted. had patient sitting in chair. per md have patient try and lay flat to see if she can handle laying flat for the procedure.
[2022-04-16] MEDS: CefTRIAXone/D5W-Rocephin 1gm 50 ML IV SCH (22:12)
[2022-04-16] MEDS: acetaminophen 325mg tablet PO PRN (22:59)
[2022-04-16] MEDS: ondansetron 4mg rapidly disintigrating tab PO PRN (23:44)
[2022-04-17] MEDS: ipratropium/albuterol 3ml nebule NEB SCH ×6 (02:35→23:19)
[2022-04-17] MEDS: albuterol 2.5 MG/3 ML nebule NEB SCH ×3 (02:37→15:11)
[2022-04-17] MEDS: methylPREDNISolone sod succ 125mg/2ml vial IV SCH ×4 (03:51→19:48)
[2022-04-17 06:00] VITALS: BP 128/59
--- NOTE | 2022-04-17 06:30 | NUR ---
Patient in room PCU 3018. I have received report from America BLISS and had the opportunity to ask questions and assume patient care.Bedside report completed.Pt awake and alert. Addendum: 04/17/22 at 0649 by Azul Rain RN Amended: Links added.
[2022-04-17 06:46] LABS: BASOPHILS % (AUTO) 0 % (0-1); EOSINOPHILS % (AUTO) 0.1 % (0-6); HEMATOCRIT 36.1 % (35.0-45.0); HEMOGLOBIN 12.4 g/dl (12.0-16.0); LYMPHOCYTES # (AUTO) 0.6 X10'3 (1.1-4.8); LYMPHOCYTES % (AUTO) 5.8 % (21-51); MEAN CORPUSCULAR HEMOGLOBIN 31.2 PG (27.0-31.0); MEAN CORPUSCULAR HGB CONC 34.4 g/dL (33.0-36.5); MEAN CORPUSCULAR VOLUME 90.7 FL (78-98); MEAN PLATELET VOLUME 6.8 FL (7.4-10.4); MONOCYTES # (AUTO) 0.1 X10'3 (0-0.9); NEUTROPHILS # (AUTO) 9.3 X10'3 (1.8-7.7); NEUTROPHILS % (AUTO) 93.1 % (42-75); PLATELET COUNT 374 X10'3 (140-440); RED BLOOD COUNT 3.97 X10'6 (4.20-5.60); RED CELL DISTRIBUTION WIDTH 14.1 % (11.5-14.5)
--- NOTE | 2022-04-17 06:56 | NUR ---
Hep Gtt running at 1200 units /hr. PTT back @ 71. Gtt decreased per protocol down to 1100 units /hr
[2022-04-17] MEDS: azithromycin 250mg tablet PO SCH (07:53)
[2022-04-17] MEDS: amiodarone 200mg tablet PO SCH ×2 (07:53→19:44)
[2022-04-17] MEDS: cholecalciferol (vitamin D3) 1,000 unit (25mcg) tablet PO SCH (07:53)
[2022-04-17] MEDS: losartan 50mg tablet PO SCH (07:54)
[2022-04-17] MEDS: levoTHYROXINE 75mcg tablet PO SCH (07:54)
[2022-04-17] MEDS: metoprolol tartrate 25mg tablet PO SCH ×2 (07:55→19:44)
[2022-04-17] MEDS: HYDROchlorothiazide 12.5mg capsule PO SCH (07:55)
[2022-04-17] MEDS: aspirin 81mg, enteric-coated 1 TAB TABLET.DR PO SCH (07:55)
[2022-04-17] MEDS: atorvastatin 20mg tablet PO SCH (07:56)
[2022-04-17] MEDS: furosemide 40mg/4ml inj IV SCH (07:57)
[2022-04-17] MEDS: potassium Cl 20 mEq SR tablet PO SCH (07:57)
[2022-04-17] MEDS: ascorbic acid 500mg tablet PO SCH (08:00)
[2022-04-17] MEDS: K and/or MAG REPLACEMENT MC SCH ×2 (08:00→19:49)
[2022-04-17] MEDS: OMEGA-3/DHA/EPA/FISH OIL 1 EACH CAPSULE.DR PO SCH (08:00)
[2022-04-17] MEDS: folic acid 0.4mg tablet PO SCH (08:00)
[2022-04-17 08:13] LABS: ALBUMIN 3.3 G/DL (3.4-5.0); ANION GAP 6 (8-16); BLOOD UREA NITROGEN 41 MG/DL (7-18); BUN/CREATININE RATIO 24.6 (6.6-38.0); CALCIUM 10.2 MG/DL (8.5-10.1); CHLORIDE 91 MMOL/L (99-107); CREATININE 1.67 MG/DL (0.40-0.90); GLUCOSE 188 MG/DL (70-104); POTASSIUM 3.7 MMOL/L (3.5-5.1); SODIUM 130 MMOL/L (135-145); TOTAL CARBON DIOXIDE 32.6 MMOL/L (24-32); eGFR 30 ML/MIN
[2022-04-17] MEDS: ALPRAZolam 0.25mg tablet PO PRN ×2 (08:59→16:30)
[2022-04-17] MEDS: budesonide 0.5mg/2ml UD nebule IH SCH ×2 (08:59→20:36)
[2022-04-17] MEDS ORDERED: docusate sod 100mg capsule PO ONE (09:50)
[2022-04-17 11:39] VITALS: BP 129/60
--- NOTE | 2022-04-17 12:14 | NUR ---
Initial: Pt presented with c/o SOB and admit for acute respiratory failure, COPD exacerbation, and NSTEMI. Pt initially on a CHO controlled heart healthy diet with average 64% PO intake which meets 82% estimated energy needs and 96% estimated protein needs, though noted PO intake up to 100% at breakfast this morning per EMR. Noted 1.5 L fluid restriction added to diet order. LBM 3/3 with no routine or PRN bowel care available. MD paged with recommendation to discontinue CHO controlled diet restriction as pt with no PMH DM and no A1c, elevated BG levels likely r/t steroid use. Also recommended routine bowel care. Pt no longer on a CHO controlled diet restriction and with routine bowel care added to med list. D/w dietary to send prunes and power pudding with next meal to further assist with bowel regularity. Will continue to follow and monitor need for additional nutrition intervention. Recommendations: 1) Continue heart healthy diet with 1.5 L fluid restriction per MD 2) Routine bowel care 3) Scaled weight this admit; subsequent weekly scaled weights Addendum: 04/17/22 at [address] Amended: Links added.
[2022-04-17 15:30] VITALS: BP 120/64
[2022-04-17 15:54] LABS: aPTT 25.6 sec (22.9-30.2)
--- NOTE | 2022-04-17 16:27 | NUR ---
PAGER ID: [phone] MESSAGE: [id number] Homer Can I give Xanax 30 min early? She states she is starting to panic over the upcoming heart cath. [facility] Dr Hayden Called back. OK to give early.
--- NOTE | 2022-04-17 17:44 | NUR ---
PAGER ID: [phone] MESSAGE: [id number] Homer can I order MOM , Dulcolax Suppository , Enema? Azul CARRIZALES
[2022-04-17 18:00] VITALS: BP_SYST 121; BP_SYST 126; BP_DIAS 55; BP_DIAS 62
--- NOTE | 2022-04-17 18:21 | NUR ---
Problems reprioritized. Patient report given, questions answered & plan of care reviewed with Jason BLISS. Bedside report completed. Pt in no distress, Call light in reach.. Addendum: 04/17/22 at 1822 by Azul Rain RN Amended: Links added.
[2022-04-17] MEDS: docusate sod 100mg capsule PO SCH (19:45)
[2022-04-17 22:00] VITALS: BP_SYST 113; BP_SYST 122; BP_DIAS 60; BP_DIAS 61
[2022-04-17] MEDS: CefTRIAXone/D5W-Rocephin 1gm 50 ML IV SCH (22:25)
[2022-04-17] MEDS: heparin 25,000 UNIT/250ml bag 250 ML IV PRN (22:58)
[2022-04-18 02:00] VITALS: BP 125/86
[2022-04-18] MEDS: methylPREDNISolone sod succ 125mg/2ml vial IV SCH ×4 (02:21→20:22)
[2022-04-18] MEDS: ipratropium/albuterol 3ml nebule NEB SCH ×6 (03:03→23:00)
[2022-04-18 06:00] VITALS: BP 115/55
--- NOTE | 2022-04-18 06:41 | NUR ---
Patient in room U 3018. I have received report from Jason BLISS and had the opportunity to ask questions and assume patient care.Bedside report completed. Pt awake and in good sperits. Denies needs. Addendum: 04/18/22 at 0642 by Azul Rain RN Amended: Links added.
--- NOTE | 2022-04-18 06:55 | NUR ---
report given to Azul BLISS
[2022-04-18] MEDS: budesonide 0.5mg/2ml UD nebule IH SCH ×2 (07:27→20:07)
[2022-04-18] MEDS: docusate sod 100mg capsule PO SCH ×2 (08:00→20:21)
[2022-04-18] MEDS: amiodarone 200mg tablet PO SCH ×2 (08:00→20:21)
[2022-04-18] MEDS: K and/or MAG REPLACEMENT MC SCH ×2 (08:00→20:00)
[2022-04-18] MEDS: azithromycin 250mg tablet PO SCH (08:01)
[2022-04-18] MEDS: HYDROchlorothiazide 12.5mg capsule PO SCH (08:01)
[2022-04-18] MEDS: levoTHYROXINE 75mcg tablet PO SCH (08:02)
[2022-04-18] MEDS: metoprolol tartrate 25mg tablet PO SCH ×2 (08:02→20:21)
[2022-04-18] MEDS: losartan 50mg tablet PO SCH (08:02)
[2022-04-18] MEDS: furosemide 40mg/4ml inj IV SCH (08:03)
[2022-04-18] MEDS: atorvastatin 20mg tablet PO SCH (08:56)
[2022-04-18] MEDS: aspirin 81mg, enteric-coated 1 TAB TABLET.DR PO SCH (08:56)
[2022-04-18] MEDS: folic acid 0.4mg tablet PO SCH (08:56)
[2022-04-18] MEDS: ascorbic acid 500mg tablet PO SCH (08:57)
[2022-04-18] MEDS: cholecalciferol (vitamin D3) 1,000 unit (25mcg) tablet PO SCH (08:57)
[2022-04-18] MEDS: OMEGA-3/DHA/EPA/FISH OIL 1 EACH CAPSULE.DR PO SCH (09:28)
[2022-04-18] MEDS: ALPRAZolam 0.25mg tablet PO PRN ×2 (09:28→20:32)
[2022-04-18] MEDS: potassium Cl 20 mEq SR tablet PO SCH (09:28)
[2022-04-18 11:00] VITALS: BP 114/54
[2022-04-18] MEDS ORDERED: mineral oil 133ml enema RC PRN (11:20)
[2022-04-18] MEDS: magnesium hydroxide 30ml (MOM) UD suspension PO PRN (11:51)
[2022-04-18 15:00] VITALS: BP 129/65
[2022-04-18 18:00] VITALS: BP 124/89
--- NOTE | 2022-04-18 18:15 | NUR ---
Problems reprioritized. Patient report given, questions answered & plan of care reviewed with Jason BLISS. Bedside report completed. Pt denies needs and is OK with no Heart cath today. Addendum: 04/18/22 at 1816 by Azul Rain RN Amended: Links added.
[2022-04-18 22:00] VITALS: BP 135/61
[2022-04-18] MEDS: CefTRIAXone/D5W-Rocephin 1gm 50 ML IV SCH (23:38)
[2022-04-19] VITALS (9 sets, daily range): BP systolic 116–133; BP diastolic 46–89
[2022-04-19] MEDS: methylPREDNISolone sod succ 125mg/2ml vial IV SCH ×2 (01:45→09:07)
[2022-04-19] MEDS: ipratropium/albuterol 3ml nebule NEB SCH ×6 (03:00→22:37)
--- NOTE | 2022-04-19 03:03 | NUR ---
PT REQUESTED THAT HER BROTHER KIRSTIE SIM BE INCLUDED ON HER CONTACT,AND INFORMATION REGARDING HER TREATMENT SHOULD BE DISCLOSED TO HIM.SHE SAID THIS IN THE PRESENCE OF HER NURSE AND A WITNESS
--- NOTE | 2022-04-19 04:11 | NUR ---
per pt request sent page to RT for breathing tx
[2022-04-19] MEDS: ipratropium/albuterol 3ml nebule NEB PRN (04:18)
--- NOTE | 2022-04-19 06:45 | NUR ---
Patient in room PCU 3018. I have received report from Cheryl and had the opportunity to ask questions and assume patient care.
--- NOTE | 2022-04-19 06:45 | NUR ---
Report given to Mica BLISS
[2022-04-19] MEDS: budesonide 0.5mg/2ml UD nebule IH SCH ×2 (07:50→22:36)
[2022-04-19] MEDS: K and/or MAG REPLACEMENT MC SCH ×2 (07:55→20:00)
--- NOTE | 2022-04-19 08:29 | NUR ---
PAGER ID: [phone] MESSAGE: Mirna Coronel in 8800T - Noc Rn d/c'd heparin gtt per Rossi Anguiano's note. Verifying discontinuation.? -Mica [phone]
[2022-04-19 08:59] LABS: BASOPHILS % (AUTO) 0.1 % (0-1); EOSINOPHILS % (AUTO) 0 % (0-6); HEMATOCRIT 40.6 % (35.0-45.0); HEMOGLOBIN 13.2 g/dl (12.0-16.0); LYMPHOCYTES # (AUTO) 0.4 X10'3 (1.1-4.8); MEAN CORPUSCULAR HEMOGLOBIN 29.7 PG (27.0-31.0); MEAN CORPUSCULAR HGB CONC 32.5 g/dL (33.0-36.5); MEAN CORPUSCULAR VOLUME 91.4 FL (78-98); MONOCYTES # (AUTO) 0.8 X10'3 (0-0.9); MONOCYTES % (AUTO) 3.8 % (2-12); NEUTROPHILS # (AUTO) 19.5 X10'3 (1.8-7.7); NEUTROPHILS % (AUTO) 94.1 % (42-75); PLATELET COUNT 434 X10'3 (140-440); RED BLOOD COUNT 4.45 X10'6 (4.20-5.60); RED CELL DISTRIBUTION WIDTH 14.5 % (11.5-14.5); WHITE BLOOD COUNT 20.7 X10'3 (4.5-11.0)
[2022-04-19] MEDS: amiodarone 200mg tablet PO SCH ×2 (09:05→20:34)
[2022-04-19] MEDS: HYDROchlorothiazide 12.5mg capsule PO SCH (09:05)
[2022-04-19] MEDS: cholecalciferol (vitamin D3) 1,000 unit (25mcg) tablet PO SCH (09:05)
[2022-04-19] MEDS: losartan 50mg tablet PO SCH (09:05)
[2022-04-19] MEDS: aspirin 81mg, enteric-coated 1 TAB TABLET.DR PO SCH (09:05)
[2022-04-19] MEDS: ascorbic acid 500mg tablet PO SCH (09:06)
[2022-04-19] MEDS: levoTHYROXINE 75mcg tablet PO SCH (09:06)
[2022-04-19] MEDS: folic acid 0.4mg tablet PO SCH (09:06)
[2022-04-19] MEDS: docusate sod 100mg capsule PO SCH ×2 (09:06→20:34)
[2022-04-19] MEDS: metoprolol tartrate 25mg tablet PO SCH ×2 (09:06→20:35)
[2022-04-19] MEDS: furosemide 40mg/4ml inj IV SCH (09:07)
[2022-04-19] MEDS: atorvastatin 20mg tablet PO SCH (09:07)
[2022-04-19] MEDS: azithromycin 250mg tablet PO SCH (09:07)
[2022-04-19] MEDS: potassium Cl 20 mEq SR tablet PO SCH (09:14)
[2022-04-19] MEDS: OMEGA-3/DHA/EPA/FISH OIL 1 EACH CAPSULE.DR PO SCH (09:15)
[2022-04-19 09:21] LABS: APTT 26 SECONDS (22-32)
[2022-04-19] MEDS: ALPRAZolam 0.25mg tablet PO PRN ×2 (09:28→17:21)
[2022-04-19 09:33] LABS: ALANINE AMINOTRANSFERASE 37 U/L (12-78); ALBUMIN 3.6 G/DL (3.4-5.0); ALBUMIN/GLOBULIN RATIO 0.8 (1.1-1.5); ALKALINE PHOSPHATASE 80 IU/L (46-116); ANION GAP 4 (8-16); ASPARTATE AMINO TRANSFERASE 34 U/L (10-37); BILIRUBIN,TOTAL 0.4 MG/DL (0.1-1.0); BLOOD UREA NITROGEN 46 MG/DL (7-18); BUN/CREATININE RATIO 33.3 (6.6-38.0); CHLORIDE 93 MMOL/L (99-107); CREATININE 1.38 MG/DL (0.40-0.90); GLUCOSE 168 MG/DL (70-104); POTASSIUM 4.4 MMOL/L (3.5-5.1); SODIUM 131 MMOL/L (135-145); TOTAL CARBON DIOXIDE 33.9 MMOL/L (24-32); TOTAL PROTEIN 7.9 G/DL (6.4-8.2); eGFR 37 ML/MIN
[2022-04-19] MEDS ORDERED: midazolam 1 mg/ML 2ml injection ONE ×2 (13:16→14:06)
[2022-04-19] MEDS ORDERED: verapamil 2.5 mg/ml inj IV ONE (13:16)
[2022-04-19] MEDS ORDERED: fentaNYL/PF 50MCG/1 ML 2ML syringe ONE (13:16)
[2022-04-19] MEDS ORDERED: nitroGLYCERIN-Tridil 50MG/D5W 250 ML IV ONE (13:16)
[2022-04-19] MEDS ORDERED: LIDOcaine 1% (10mg/ml) 2ml vial ONE (13:17)
[2022-04-19] MEDS ORDERED: heparin 1,000unit/ml 10ml vial 10 ML ONE (13:17)
[2022-04-19] MEDS ORDERED: iohexol 350MG/ML 100ml bottle IV ONE (13:17)
[2022-04-19] MEDS ORDERED: HYDROcodone/acetaminophen 10/325mg tab PO PRN (15:45)
[2022-04-19] MEDS ORDERED: HYDROcodone/acetaminophen 5mg/325mg tablet PO PRN (15:45)
[2022-04-19] MEDS ORDERED: dextrose 50%-water 50ml dispensing syringe IV PRN (15:55)
[2022-04-19] MEDS ORDERED: Insulin Reg/NS 100units/100mL 100 ML IV SCH (15:55)
[2022-04-19] MEDS ORDERED: gabapentin 400mg capsule PO ONE (15:55)
[2022-04-19] MEDS ORDERED: cefazolin/dext.iso 2gm/50ml 50 ML IV ONE (15:55)
[2022-04-19] MEDS ORDERED: insulin glargine (Lantus) pen - multi-dose SQ PRN (15:55)
[2022-04-19] MEDS ORDERED: MESSAGE TO NURSING PO ONE ×4 (15:55)
[2022-04-19 16:23] LABS: HEMOGLOBIN A1C 6.2 % (4.5-6.2)
[2022-04-19] MEDS ORDERED: ringers solution, lacted 1,000 ML IV ONE (16:35)
[2022-04-19] MEDS: acetaminophen 325mg tablet PO PRN (16:51)
[2022-04-19] MEDS: methylPREDNISolone sod succ/PF 40mg inj. IV SCH (17:51)
[2022-04-19 19:25] LABS: APTT 27 SECONDS (22-32)
[2022-04-19] MEDS ORDERED: mupirocin 2% nasal ointment 1gm UD NS SCH (20:00)
[2022-04-19] MEDS: CefTRIAXone/D5W-Rocephin 1gm 50 ML IV SCH (21:57)
[2022-04-20] VITALS (13 sets, daily range): BP systolic 116–160; BP diastolic 48–74
[2022-04-20] MEDS: methylPREDNISolone sod succ/PF 40mg inj. IV SCH (00:30)
[2022-04-20] MEDS: ipratropium/albuterol 3ml nebule NEB SCH ×6 (02:51→23:26)
[2022-04-20] MEDS: ipratropium/albuterol 3ml nebule NEB PRN (05:12)
[2022-04-20] MEDS ORDERED: LORazepam 2 mg/ml vial IV ONE (06:00)
[2022-04-20] MEDS ORDERED: famotidine/PF 10 mg/ml inj IV ONE (06:00)
--- NOTE | 2022-04-20 06:18 | NUR ---
Problems reprioritized. Patient report given, questions answered & plan of care reviewed with Mica BLISS.
--- NOTE | 2022-04-20 06:19 | NUR ---
Patient in room PCU 3018. I have received report from Cheryl and had the opportunity to ask questions and assume patient care.
[2022-04-20] MEDS: docusate sod 100mg capsule PO SCH ×2 (08:00→19:34)
[2022-04-20] MEDS: K and/or MAG REPLACEMENT MC SCH ×2 (08:00→19:30)
[2022-04-20] MEDS ORDERED: predniSONE 20 mg tablet PO ONE (08:50)
[2022-04-20] MEDS: budesonide 0.5mg/2ml UD nebule IH SCH ×2 (08:50→19:33)
[2022-04-20 09:05] LABS: CHOL/HDL RATIO 2.5 (0.00-4.99); CHOLESTEROL 241 MG/DL (0-200); HDL CHOLESTEROL 97 MG/DL (35-60); LDL CHOLESTEROL 124 MG/DL (50-100); TRIGLYCERIDES 59 MG/DL (20-135)
[2022-04-20 09:33] LABS: ALANINE AMINOTRANSFERASE 35 U/L (12-78); ALBUMIN 3.6 G/DL (3.4-5.0); ALBUMIN/GLOBULIN RATIO 0.9 (1.1-1.5); ALKALINE PHOSPHATASE 81 IU/L (46-116); ANION GAP 9 (8-16); ASPARTATE AMINO TRANSFERASE 31 U/L (10-37); BILIRUBIN,TOTAL 0.5 MG/DL (0.1-1.0); BLOOD UREA NITROGEN 54 MG/DL (7-18); CALCIUM 10.1 MG/DL (8.5-10.1); CHLORIDE 91 MMOL/L (99-107); CREATININE 1.46 MG/DL (0.40-0.90); GLUCOSE 165 MG/DL (70-104); POTASSIUM 4.7 MMOL/L (3.5-5.1); SODIUM 129 MMOL/L (135-145); TOTAL CARBON DIOXIDE 28.8 MMOL/L (24-32); TOTAL PROTEIN 7.8 G/DL (6.4-8.2); eGFR 35 ML/MIN
[2022-04-20] MEDS ORDERED: MESSAGE TO NURSING PO ONE (10:00)
[2022-04-20] MEDS: HYDROchlorothiazide 12.5mg capsule PO SCH (10:12)
[2022-04-20] MEDS: aspirin 81mg, enteric-coated 1 TAB TABLET.DR PO SCH (10:13)
[2022-04-20] MEDS: losartan 50mg tablet PO SCH (10:13)
[2022-04-20] MEDS: metoprolol tartrate 25mg tablet PO SCH ×2 (10:13→19:31)
[2022-04-20] MEDS: cholecalciferol (vitamin D3) 1,000 unit (25mcg) tablet PO SCH (10:14)
[2022-04-20] MEDS: folic acid 0.4mg tablet PO SCH (10:14)
[2022-04-20] MEDS: furosemide 40mg/4ml inj IV SCH (10:14)
[2022-04-20] MEDS: levoTHYROXINE 75mcg tablet PO SCH (10:14)
[2022-04-20] MEDS: azithromycin 250mg tablet PO SCH (10:14)
[2022-04-20] MEDS: amiodarone 200mg tablet PO SCH ×2 (10:14→19:32)
[2022-04-20] MEDS: ALPRAZolam 0.25mg tablet PO PRN ×2 (10:24→19:34)
[2022-04-20] MEDS: OMEGA-3/DHA/EPA/FISH OIL 1 EACH CAPSULE.DR PO SCH (10:33)
[2022-04-20] MEDS: potassium Cl 20 mEq SR tablet PO SCH (10:34)
[2022-04-20] MEDS: atorvastatin 20mg tablet PO SCH (10:35)
[2022-04-20] MEDS: ascorbic acid 500mg tablet PO SCH (10:35)
--- NOTE | 2022-04-20 10:46 | NUR ---
ORDERS TO DISCONTINUE ALL CABG GENERAL ORDER SET PUT IN PER DR. VENEGAS.
[2022-04-20] MEDS ORDERED: verapamil 2.5 mg/ml inj IV ONE (13:30)
[2022-04-20] MEDS ORDERED: fentaNYL/PF 50MCG/1 ML 2ML syringe ONE (13:31)
[2022-04-20] MEDS ORDERED: midazolam 1 mg/ML 2ml injection ONE ×2 (13:31→15:06)
[2022-04-20] MEDS ORDERED: LIDOcaine 1% 30ml preserv. free vial ONE (13:31)
[2022-04-20] MEDS ORDERED: iohexol 350MG/ML 100ml bottle IV ONE ×3 (13:31→16:35)
[2022-04-20] MEDS ORDERED: nitroGLYCERIN-Tridil 50MG/D5W 250 ML IV ONE (13:31)
[2022-04-20] MEDS ORDERED: heparin 1,000unit/ml 10ml vial 10 ML ONE (13:31)
[2022-04-20] MEDS ORDERED: heparin 1,000 UNITS/NS 500ml 500 ML ONE (14:59)
[2022-04-20] MEDS ORDERED: atropine 0.1mg/ml 10ml syringe ONE (15:20)
[2022-04-20] MEDS ORDERED: aspirin 325mg tablet ONE (15:47)
[2022-04-20] MEDS ORDERED: clopidogrel 300mg tablet ONE (15:47)
--- NOTE | 2022-04-20 18:45 | NUR ---
Problems reprioritized. Patient report given, questions answered & plan of care reviewed with
[2022-04-20] MEDS: CefTRIAXone/D5W-Rocephin 1gm 50 ML IV SCH (21:18)
[2022-04-21] MEDS: acetaminophen 325mg tablet PO PRN ×3 (01:44→20:00)
[2022-04-21 02:10] VITALS: BP 99/48
[2022-04-21] MEDS: ipratropium/albuterol 3ml nebule NEB SCH ×6 (03:24→23:04)
[2022-04-21] MEDS: ALPRAZolam 0.25mg tablet PO PRN ×2 (04:52→20:00)
[2022-04-21] MEDS: ondansetron 4mg rapidly disintigrating tab PO PRN (04:57)
[2022-04-21] MEDS: magnesium hydroxide 30ml (MOM) UD suspension PO PRN (05:23)
[2022-04-21 06:10] VITALS: BP 97/51
[2022-04-21 07:00] VITALS: BP 97/44
[2022-04-21] MEDS: budesonide 0.5mg/2ml UD nebule IH SCH ×2 (07:31→19:29)
[2022-04-21] MEDS: potassium Cl 20 mEq SR tablet PO SCH (08:00)
[2022-04-21] MEDS: HYDROchlorothiazide 12.5mg capsule PO SCH (08:00)
[2022-04-21] MEDS: losartan 50mg tablet PO SCH (08:00)
[2022-04-21] MEDS: OMEGA-3/DHA/EPA/FISH OIL 1 EACH CAPSULE.DR PO SCH (08:00)
[2022-04-21] MEDS: amiodarone 200mg tablet PO SCH ×3 (08:00→19:39)
[2022-04-21] MEDS: ascorbic acid 500mg tablet PO SCH (08:00)
[2022-04-21] MEDS: folic acid 0.4mg tablet PO SCH (08:00)
[2022-04-21] MEDS: metoprolol tartrate 25mg tablet PO SCH ×2 (08:00→19:41)
[2022-04-21] MEDS: furosemide 40mg/4ml inj IV SCH (08:00)
[2022-04-21] MEDS: K and/or MAG REPLACEMENT MC SCH ×2 (08:00→19:35)
[2022-04-21] MEDS: atorvastatin 20mg tablet PO SCH (08:00)
--- NOTE | 2022-04-21 09:13 | NUR ---
paged Dr Hayden: Homer 18B. MARVIN BP 93/58, HR 60. Holding ALL cardiac meds + diuretics? Please call to advise. Jessica [phone] Addendum: 04/21/22 at 916 by Jessica [address] RN Dr Hayden advised me to call rn production Dr Scott. Dr Flores is behavioral modification assistant. Addendum: 04/21/22 at 924 by Jsesica Carter RN Astrid Flores who told this RUTHY to hold all cardiac meds & diuretics and check H&H & to call Dr Scott for any other issues Addendum: 04/21/22 at 0938 by Jessica Carter RN Paged Dr Scott per Dr Flores who wanted to see if EKG and ECHO ordered recently. ECHO shows EF 40% and EKG last performed 04/20. Which meds do I hold vs administer? RUTHY standing by Addendum: 04/21/22 at 0945 by Jessica Carter RN Dr Flores returned call: instructed to give Plavix and ASA, hold all other meds pending cardiology assessment in person
[2022-04-21] MEDS: levoTHYROXINE 75mcg tablet PO SCH (09:50)
[2022-04-21] MEDS: aspirin 81mg tab.chew PO SCH (09:51)
[2022-04-21] MEDS: predniSONE 20 mg tablet PO SCH (09:51)
[2022-04-21] MEDS: azithromycin 250mg tablet PO SCH (09:51)
[2022-04-21] MEDS: clopidogrel 75mg tablet PO SCH (09:51)
[2022-04-21] MEDS: cholecalciferol (vitamin D3) 1,000 unit (25mcg) tablet PO SCH (09:52)
[2022-04-21] MEDS: docusate sod 100mg capsule PO SCH ×2 (09:52→19:39)
[2022-04-21] MEDS: aspirin 81mg, enteric-coated 1 TAB TABLET.DR PO SCH (09:52)
--- NOTE | 2022-04-21 10:17 | NUR ---
Paged Dr Hayden: Homer 18B. FYI: ordered EKG per nausea, back pain and heart burn and Dr Flores wanted repeat. Jessica [phone]
[2022-04-21] MEDS ORDERED: magnesium citrate 296ml oral solution PO ONE ×2 (11:00→11:15)
[2022-04-21] MEDS ORDERED: proCHLORperazine 10 MG/2 ml inj IV PRN (11:00)
--- NOTE | 2022-04-21 11:29 | NUR ---
s/w Dr Shay and patient, need to restart IV for K+ replacement. Pt amenable. Called ED for US start, RN unavailable in ED. RN to attempt L wrist K+ replacement.
[2022-04-21 12:00] VITALS: BP 96/50
--- NOTE | 2022-04-21 12:03 | NUR ---
S/W Pharmacy, Mg Citrate unavailable. Notified Dr Hayden Addendum: 04/21/22 at 1206 by Jessica Carter RN Homer Curtis. Mg+ Citrate unavailable per pharmacy. Jessica Wang Addendum: 04/21/22 at 1510 by Jessica Carter RN Paged Dr Hayden: Homer Curtis. Pt c/o 08/19 heartburn. Gave milk and placed upright. No PRN. Jessica Wang
[2022-04-21 12:26] VITALS: BP 93/58
[2022-04-21] MEDS: lactulose 20gm/30ml cup PO SCH ×2 (12:51→19:39)
[2022-04-21] MEDS ORDERED: mag hydrox/Alum hydrox/simeth 30ml oral suspension PO ONE (15:30)
[2022-04-21] MEDS: pantoprazole 40mg Tablet.DR PO SCH (15:34)
--- NOTE | 2022-04-21 16:59 | NUR ---
Pt on 2LNC Addendum: 04/21/22 at 1708 by Jessica Carter RN @ 1200
--- NOTE | 2022-04-21 17:49 | NUR ---
Pt is mouth breather. placed NC in mouth per low O2 sats
[2022-04-21] MEDS: CefTRIAXone/D5W-Rocephin 1gm 50 ML IV SCH (22:55)
[2022-04-22] MEDS: lactulose 20gm/30ml cup PO SCH ×4 (02:00→19:55)
[2022-04-22] MEDS: ipratropium/albuterol 3ml nebule NEB SCH ×6 (02:27→23:28)
[2022-04-22 07:00] VITALS: BP 110/62
[2022-04-22] MEDS ORDERED: MESSAGE TO PHARMACY IJ ONE (08:00)
[2022-04-22] MEDS: furosemide 40mg/4ml inj IV SCH (08:00)
[2022-04-22] MEDS: K and/or MAG REPLACEMENT MC SCH ×2 (08:00→20:00)
[2022-04-22] MEDS: OMEGA-3/DHA/EPA/FISH OIL 1 EACH CAPSULE.DR PO SCH (08:29)
[2022-04-22] MEDS: cholecalciferol (vitamin D3) 1,000 unit (25mcg) tablet PO SCH (08:30)
[2022-04-22] MEDS: docusate sod 100mg capsule PO SCH ×2 (08:30→19:55)
[2022-04-22] MEDS: amiodarone 200mg tablet PO SCH ×2 (08:31→19:55)
[2022-04-22] MEDS: pantoprazole 40mg Tablet.DR PO SCH (08:31)
[2022-04-22] MEDS: azithromycin 250mg tablet PO SCH (08:31)
[2022-04-22] MEDS: predniSONE 20 mg tablet PO SCH (08:31)
[2022-04-22] MEDS: metoprolol tartrate 25mg tablet PO SCH (08:32)
[2022-04-22] MEDS: losartan 25mg tablet PO SCH (08:32)
[2022-04-22] MEDS: folic acid 0.4mg tablet PO SCH (08:36)
[2022-04-22] MEDS: atorvastatin 20mg tablet PO SCH (08:36)
[2022-04-22] MEDS: aspirin 81mg, enteric-coated 1 TAB TABLET.DR PO SCH (08:36)
[2022-04-22] MEDS: budesonide 0.5mg/2ml UD nebule IH SCH ×2 (08:37→20:00)
[2022-04-22] MEDS: potassium Cl 20 mEq SR tablet PO SCH (08:37)
[2022-04-22] MEDS: levoTHYROXINE 75mcg tablet PO SCH (08:37)
[2022-04-22] MEDS: aspirin 81mg tab.chew PO SCH (08:37)
[2022-04-22] MEDS: ascorbic acid 500mg tablet PO SCH (08:37)
[2022-04-22] MEDS: clopidogrel 75mg tablet PO SCH (08:37)
[2022-04-22 09:11] LABS: BASOPHILS % (AUTO) 0.1 % (0-1); EOSINOPHILS # (AUTO) 0.2 X10'3 (0-0.9); EOSINOPHILS % (AUTO) 0.8 % (0-6); HEMATOCRIT 34.4 % (35.0-45.0); HEMOGLOBIN 11.5 g/dl (12.0-16.0); LYMPHOCYTES # (AUTO) 0.5 X10'3 (1.1-4.8); LYMPHOCYTES % (AUTO) 2.8 % (21-51); MEAN CORPUSCULAR HEMOGLOBIN 30.5 PG (27.0-31.0); MEAN CORPUSCULAR HGB CONC 33.6 g/dL (33.0-36.5); MEAN CORPUSCULAR VOLUME 90.8 FL (78-98); MEAN PLATELET VOLUME 6.8 FL (7.4-10.4); MONOCYTES # (AUTO) 1.4 X10'3 (0-0.9); MONOCYTES % (AUTO) 7.2 % (2-12); NEUTROPHILS # (AUTO) 17.6 X10'3 (1.8-7.7); NEUTROPHILS % (AUTO) 89.1 % (42-75); PLATELET COUNT 324 X10'3 (140-440); RED BLOOD COUNT 3.79 X10'6 (4.20-5.60); RED CELL DISTRIBUTION WIDTH 14.3 % (11.5-14.5); WHITE BLOOD COUNT 19.7 X10'3 (4.5-11.0)
[2022-04-22 09:50] LABS: ALANINE AMINOTRANSFERASE 35 U/L (12-78); ALBUMIN/GLOBULIN RATIO 0.9 (1.1-1.5); ALKALINE PHOSPHATASE 70 IU/L (46-116); ANION GAP 7 (8-16); ASPARTATE AMINO TRANSFERASE 59 U/L (10-37); BILIRUBIN,TOTAL 0.3 MG/DL (0.1-1.0); BLOOD UREA NITROGEN 88 MG/DL (7-18); BUN/CREATININE RATIO 25.7 (6.6-38.0); CALCIUM 9.4 MG/DL (8.5-10.1); CHLORIDE 87 MMOL/L (99-107); CREATININE 3.42 MG/DL (0.40-0.90); GLUCOSE 135 MG/DL (70-104); POTASSIUM 5.1 MMOL/L (3.5-5.1); SODIUM 126 MMOL/L (135-145); TOTAL CARBON DIOXIDE 31.6 MMOL/L (24-32); TOTAL PROTEIN 6.4 G/DL (6.4-8.2); eGFR 13 ML/MIN
[2022-04-22] MEDS ORDERED: methylnaltrexone br 12mg/0.6ml inj***SubQ only SQ PRN ×2 (10:05→15:41)
[2022-04-22] MEDS ORDERED: metoclopramide 5 mg/ml inj IV PRN (10:05)
[2022-04-22 11:00] VITALS: BP 118/65
[2022-04-22] MEDS: normal saline 1000ml 1,000 ML IV SCH ×2 (13:00→23:00)
--- NOTE | 2022-04-22 14:04 | NUR ---
1100 SVN triaged, therapist not available
--- NOTE | 2022-04-22 14:38 | NUR ---
F/u 04/22: Pt PO continue to fluctuate overall slight decline ~57% avg meals though refusing vs 0% past 2 meals per EMR. Overall partially meeting ~85% protein and ~86% kcal estimated needs. Noted pt DX Ileus secondary to opiates passing some gas w/ abdomen distention LBM 04/18. PRN relistor and reglan ordered today yet to be provided w/ pt receiving Lactulose W6H ion addition to routine colace per EMR. Constipation likely impacting recent PO trends. Noted pt serum Na 126mmol/L this AM to receive IV NS at 100ml/hr starting today for SHEELA per EMR; RD paged MD regarding removal of fluid-restricted diet given this if agreeable. Will monitor for further PO trends and nutrition intervention needs this admit. Recommendations: 1) Continue heart healthy diet; consider removing fluid restricted diet since to start IV NS at 100ml/hr per physician discretion 2) Monitor further PO trends; if regression persists consider ONS 3) Routine bowel care and PRN promotility agent/opioid antagonist per MD; 4 days constipation w/ Ileus secondary to opiates per MD 4) Scaled weight this admit; subsequent weekly scaled weights Addendum: 04/22/22 at [address] Amended: Links added.
[2022-04-22 15:00] VITALS: BP 112/60
[2022-04-22] MEDS: bisacodyl 10mg suppository rectal RC PRN (16:27)
[2022-04-22 18:00] VITALS: BP 123/55
[2022-04-22] MEDS: ondansetron 4mg rapidly disintigrating tab PO PRN (23:50)
[2022-04-23] MEDS: ALPRAZolam 0.25mg tablet PO PRN ×2 (01:48→21:56)
[2022-04-23 02:00] VITALS: BP 141/65
[2022-04-23] MEDS: lactulose 20gm/30ml cup PO SCH ×5 (02:00→18:49)
[2022-04-23] MEDS ORDERED: benzonatate 100mg capsule PO PRN (02:15)
[2022-04-23] MEDS: ipratropium/albuterol 3ml nebule NEB SCH ×5 (02:49→20:20)
[2022-04-23 07:00] VITALS: BP 131/51
[2022-04-23] MEDS: budesonide 0.5mg/2ml UD nebule IH SCH ×2 (07:33→20:20)
[2022-04-23] MEDS: losartan 25mg tablet PO SCH (08:00)
[2022-04-23] MEDS: clopidogrel 75mg tablet PO SCH (08:00)
[2022-04-23] MEDS: docusate sod 100mg capsule PO SCH ×2 (08:00→18:49)
[2022-04-23] MEDS: K and/or MAG REPLACEMENT MC SCH ×2 (08:00→20:00)
[2022-04-23] MEDS: metoprolol succinate 25mg (24-HOUR) SR. Tablet PO SCH (08:00)
[2022-04-23] MEDS: potassium Cl 20 mEq SR tablet PO SCH (08:00)
[2022-04-23] MEDS: aspirin 81mg, enteric-coated 1 TAB TABLET.DR PO SCH (08:00)
[2022-04-23] MEDS: levoTHYROXINE 75mcg tablet PO SCH (08:00)
[2022-04-23] MEDS: atorvastatin 20mg tablet PO SCH (08:00)
[2022-04-23] MEDS: OMEGA-3/DHA/EPA/FISH OIL 1 EACH CAPSULE.DR PO SCH (08:00)
[2022-04-23] MEDS: amiodarone 200mg tablet PO SCH ×2 (08:00→18:49)
[2022-04-23] MEDS: predniSONE 20 mg tablet PO SCH (08:30)
[2022-04-23] MEDS: normal saline 1000ml 1,000 ML IV SCH ×2 (09:00→19:00)
[2022-04-23 09:23] LABS: BASOPHILS % (AUTO) 0 % (0-1); EOSINOPHILS # (AUTO) 0.4 X10'3 (0-0.9); EOSINOPHILS % (AUTO) 1.7 % (0-6); HEMATOCRIT 33.7 % (35.0-45.0); HEMOGLOBIN 11.3 g/dl (12.0-16.0); LYMPHOCYTES # (AUTO) 0.7 X10'3 (1.1-4.8); LYMPHOCYTES % (AUTO) 3.4 % (21-51); MEAN CORPUSCULAR HEMOGLOBIN 30.4 PG (27.0-31.0); MEAN CORPUSCULAR HGB CONC 33.6 g/dL (33.0-36.5); MEAN CORPUSCULAR VOLUME 90.6 FL (78-98); MONOCYTES # (AUTO) 1.5 X10'3 (0-0.9); MONOCYTES % (AUTO) 7.3 % (2-12); NEUTROPHILS # (AUTO) 18.4 X10'3 (1.8-7.7); NEUTROPHILS % (AUTO) 87.6 % (42-75); PLATELET COUNT 321 X10'3 (140-440); RED BLOOD COUNT 3.72 X10'6 (4.20-5.60); RED CELL DISTRIBUTION WIDTH 14.1 % (11.5-14.5)
[2022-04-23 09:35] LABS: ALANINE AMINOTRANSFERASE 37 U/L (12-78); ALBUMIN 3.2 G/DL (3.4-5.0); ALBUMIN/GLOBULIN RATIO 0.9 (1.1-1.5); ALKALINE PHOSPHATASE 90 IU/L (46-116); ANION GAP 9 (8-16); ASPARTATE AMINO TRANSFERASE 46 U/L (10-37); BILIRUBIN,TOTAL 0.4 MG/DL (0.1-1.0); BLOOD UREA NITROGEN 105 MG/DL (7-18); BUN/CREATININE RATIO 24.9 (6.6-38.0); CALCIUM 9.6 MG/DL (8.5-10.1); CHLORIDE 88 MMOL/L (99-107); CREATININE 4.21 MG/DL (0.40-0.90); GLUCOSE 163 MG/DL (70-104); POTASSIUM 4.9 MMOL/L (3.5-5.1); SODIUM 128 MMOL/L (135-145); TOTAL CARBON DIOXIDE 31.1 MMOL/L (24-32); TOTAL PROTEIN 6.7 G/DL (6.4-8.2); eGFR 10 ML/MIN
[2022-04-23 11:00] VITALS: BP 135/50
--- NOTE | 2022-04-23 12:10 | NUR ---
Page sent @ 1210 - Pt 0215BMichael, may we take pt off NPO status, giving dose of reglan and zofran prior to meal. CT results available. Laura Singleton @0548
[2022-04-23] MEDS: ondansetron 4mg rapidly disintigrating tab PO PRN (12:13)
[2022-04-23] MEDS ORDERED: bisacodyl 10mg suppository rectal RC PRN (12:25)
[2022-04-23] MEDS ORDERED: vancomycin/NS 1 GM ADD-VANTAGE 250 ML IV PRN (13:00)
--- NOTE | 2022-04-23 13:30 | NUR ---
MD gave verbal order to insert NG tube continuous low suction r/t ileus, and give suppository r/t constipation noted on CT scan.
--- NOTE | 2022-04-23 14:05 | NUR ---
Page sent @ 1405 - Pt 5481L, trying to place NG tube, pt is very anxious, refusing tube. May we have a one time order for ativan prior to insertion? Laura Singleton @[phone]
--- NOTE | 2022-04-23 14:13 | NUR ---
Msg sent to pharmacy @0114 - Pt had vancomycin due @1245, unknown what dosing is and med not available. Please advise. Thanks Laura C @[phone].
[2022-04-23] MEDS: bisacodyl 10mg suppository rectal RC PRN (14:20)
[2022-04-23] MEDS ORDERED: vancomycin/NS 1 GM ADD-VANTAGE 250 ML IV ONE (14:35)
[2022-04-23 15:00] VITALS: BP 134/49
[2022-04-23] MEDS ORDERED: LORazepam 2 mg/ml vial IV ONE (15:00)
[2022-04-23] MEDS: piperacillin/tazo 3.375gm/50ml 50 ML IV SCH (15:08)
--- NOTE | 2022-04-23 16:51 | NUR ---
I AGREE WITH HAILEY, AMBULATORY SERVICES REPRESENTATIVE ASSESSMENT.
--- NOTE | 2022-04-23 16:57 | NUR ---
Pt continuing to refuse NG tube insertion, LN will have noc nurse try on their shift. UA will also be obtained.
[2022-04-23 18:00] VITALS: BP 124/55
[2022-04-23 20:38] LABS: ABG BASE EXCESS -2.3 mmol/L (-2.0-2.0); ABG HCO3 25.7 mmol/L (22.0-26.0); ABG PCO2 (T) 59.1 mmHg (32.0-45.0); ABG PO2 (T) 73.9 mmHg (75.0-100.0); ALLEN'S TEST POSITIVE; FCOHb 0.3 % (0.0-3.9); FLOW 6 L/min; FMetHb 0.2 % (0.0-1.5); FO2Hb 91.5 % (94-97); PATIENT TEMPERATURE 36.3; TOTAL HEMOGLOBIN 11.4 G/dl (12.0-16.0)
[2022-04-23] MEDS ORDERED: furosemide 10 MG/1 ML 10ml inj IV ONE (20:45)
[2022-04-23 20:48] LABS: BASOPHILS # (AUTO) 0.1 X10'3 (0-0.2); BASOPHILS % (AUTO) 0.3 % (0-1); EOSINOPHILS # (AUTO) 0.8 X10'3 (0-0.9); EOSINOPHILS % (AUTO) 3.6 % (0-6); HEMATOCRIT 32.4 % (35.0-45.0); HEMOGLOBIN 10.7 g/dl (12.0-16.0); LYMPHOCYTES # (AUTO) 1.5 X10'3 (1.1-4.8); LYMPHOCYTES % (AUTO) 6.3 % (21-51); MEAN CORPUSCULAR HEMOGLOBIN 30.6 PG (27.0-31.0); MEAN CORPUSCULAR HGB CONC 33.1 g/dL (33.0-36.5); MEAN CORPUSCULAR VOLUME 92.4 FL (78-98); MEAN PLATELET VOLUME 6.7 FL (7.4-10.4); MONOCYTES # (AUTO) 1.9 X10'3 (0-0.9); MONOCYTES % (AUTO) 8.1 % (2-12); NEUTROPHILS % (AUTO) 81.7 % (42-75); PLATELET COUNT 317 X10'3 (140-440); RED BLOOD COUNT 3.51 X10'6 (4.20-5.60); RED CELL DISTRIBUTION WIDTH 14.7 % (11.5-14.5); WHITE BLOOD COUNT 23.2 X10'3 (4.5-11.0)
[2022-04-23 21:14] LABS: ANION GAP 7 (8-16); BLOOD UREA NITROGEN 108 MG/DL (7-18); BUN/CREATININE RATIO 22.5 (6.6-38.0); CALCIUM 8.9 MG/DL (8.5-10.1); CHLORIDE 92 MMOL/L (99-107); CREATININE 4.81 MG/DL (0.40-0.90); GLUCOSE 135 MG/DL (70-104); PHOSPHORUS 8.9 MG/DL (2.3-4.5); POTASSIUM 5.3 MMOL/L (3.5-5.1); SODIUM 130 MMOL/L (135-145); TOTAL CARBON DIOXIDE 30.9 MMOL/L (24-32); eGFR 9 ML/MIN
[2022-04-23 21:25] LABS: TOTAL CELLS COUNTED 100
[2022-04-23 21:26] LABS: PLATELET ESTIMATE NORMAL
[2022-04-23 21:51] LABS: ABG BASE EXCESS -4.7 mmol/L (-2.0-2.0); ABG HCO3 20.9 mmol/L (22.0-26.0); ABG OXYGEN SATURATION 98.9 % (94-97); ABG PCO2 (T) 39.2 mmHg (32.0-45.0); ABG PO2 (T) 183.9 mmHg (75.0-100.0); FCOHb 0.3 % (0.0-3.9); FMetHb 0.4 % (0.0-1.5); FO2Hb 98.2 % (94-97); PATIENT TEMPERATURE 36.3; RESPIRATORY RATE 12 b/min
[2022-04-24] MEDS: ipratropium/albuterol 3ml nebule NEB SCH ×7 (00:07→23:17)
[2022-04-24 02:00] VITALS: BP 128/49
[2022-04-24] MEDS: VANCOMYCIN LEVEL IV SCH (03:00)
[2022-04-24 06:38] LABS: BASOPHILS % (AUTO) 0.2 % (0-1); EOSINOPHILS # (AUTO) 0.6 X10'3 (0-0.9); EOSINOPHILS % (AUTO) 2.8 % (0-6); HEMATOCRIT 28.3 % (35.0-45.0); HEMOGLOBIN 9.4 g/dl (12.0-16.0); LYMPHOCYTES # (AUTO) 0.5 X10'3 (1.1-4.8); LYMPHOCYTES % (AUTO) 2.6 % (21-51); MEAN CORPUSCULAR HEMOGLOBIN 30.8 PG (27.0-31.0); MEAN CORPUSCULAR HGB CONC 33.3 g/dL (33.0-36.5); MEAN CORPUSCULAR VOLUME 92.4 FL (78-98); MONOCYTES # (AUTO) 1.3 X10'3 (0-0.9); MONOCYTES % (AUTO) 6.7 % (2-12); NEUTROPHILS # (AUTO) 17.8 X10'3 (1.8-7.7); NEUTROPHILS % (AUTO) 87.7 % (42-75); PLATELET COUNT 243 X10'3 (140-440); RED BLOOD COUNT 3.06 X10'6 (4.20-5.60); RED CELL DISTRIBUTION WIDTH 14.4 % (11.5-14.5); WHITE BLOOD COUNT 20.2 X10'3 (4.5-11.0)
[2022-04-24 06:59] LABS: ALANINE AMINOTRANSFERASE 28 U/L (12-78); ALBUMIN 2.7 G/DL (3.4-5.0); ALBUMIN/GLOBULIN RATIO 0.9 (1.1-1.5); ALKALINE PHOSPHATASE 81 IU/L (46-116); ANION GAP 11 (8-16); ASPARTATE AMINO TRANSFERASE 31 U/L (10-37); BILIRUBIN,TOTAL 0.4 MG/DL (0.1-1.0); BLOOD UREA NITROGEN 115 MG/DL (7-18); BUN/CREATININE RATIO 21.1 (6.6-38.0); CALCIUM 8.6 MG/DL (8.5-10.1); CHLORIDE 93 MMOL/L (99-107); CREATININE 5.44 MG/DL (0.40-0.90); GLUCOSE 116 MG/DL (70-104); POTASSIUM 5.6 MMOL/L (3.5-5.1); SODIUM 128 MMOL/L (135-145); TOTAL PROTEIN 5.8 G/DL (6.4-8.2); VANCOMYCIN,RANDOM 21.3 UG/ML; eGFR 8 ML/MIN
--- NOTE | 2022-04-24 07:07 | NUR ---
Patient in room PCU 3018B. I have received report from Cipriano STEWART and had the opportunity to ask questions and assume patient care.
[2022-04-24] MEDS: docusate sod 100mg capsule PO SCH ×2 (08:00→20:00)
[2022-04-24] MEDS: K and/or MAG REPLACEMENT MC SCH (08:00)
[2022-04-24] MEDS ORDERED: LIDOcaine 2% 10ml TOPICAL JELLY (Urojet) TP ONE (08:00)
[2022-04-24] MEDS ORDERED: pantoprazole 40MG/NS 100ML BAG 100 ML IV SCH (08:00)
[2022-04-24] MEDS: lactulose 20gm/30ml cup PO SCH (08:00)
[2022-04-24] MEDS ORDERED: LidoCAINE 2% Topical Jelly 11mL syringe TOP ONE (08:10)
[2022-04-24] MEDS: budesonide 0.5mg/2ml UD nebule IH SCH ×2 (08:36→20:05)
[2022-04-24] MEDS: levoTHYROXINE 75mcg tablet PO SCH (09:10)
[2022-04-24] MEDS: amiodarone 200mg tablet PO SCH ×2 (09:10→20:00)
[2022-04-24] MEDS: ondansetron 4mg rapidly disintigrating tab PO PRN (09:10)
[2022-04-24] MEDS: predniSONE 20 mg tablet PO SCH (09:10)
[2022-04-24] MEDS: aspirin 81mg, enteric-coated 1 TAB TABLET.DR PO SCH (09:10)
[2022-04-24] MEDS: atorvastatin 20mg tablet PO SCH (09:12)
[2022-04-24] MEDS: metoprolol succinate 25mg (24-HOUR) SR. Tablet PO SCH (09:12)
[2022-04-24] MEDS: clopidogrel 75mg tablet PO SCH (09:13)
[2022-04-24] MEDS: potassium Cl 20 mEq SR tablet PO SCH (09:13)
[2022-04-24] MEDS: OMEGA-3/DHA/EPA/FISH OIL 1 EACH CAPSULE.DR PO SCH (09:13)
[2022-04-24] MEDS: piperacillin/tazo 3.375gm/50ml 50 ML IV SCH ×2 (09:35→21:24)
[2022-04-24] MEDS: ALPRAZolam 0.25mg tablet PO PRN (09:35)
[2022-04-24 15:41] VITALS: BP 112/77
--- NOTE | 2022-04-24 18:46 | NUR ---
patient will wear bipap on and off all day. patient has been having loose stools all day. at least 9. md aware i held lactalose colace. patient did eat lunch and dinner. when not on bi pap patient is on 4L NS. patients stomach in going down. and is semifirm. gave pt am meds. patients heart rate has been in the 40's.
--- NOTE | 2022-04-24 18:46 | NUR ---
Problems reprioritized. Patient report given, to Jose BLISS [id number] questions answered & plan of care reviewed with .
[2022-04-24] MEDS ORDERED: famotidine 10mg/ml inj IV SCH (20:00)
--- NOTE | 2022-04-25 00:30 | NUR ---
Had to leave unit to go to ED. Reported off to and relinquished care to TERRY Suarez. Pt resting comfortably w/ no s/s of discomfort noted.
[2022-04-25] MEDS: ipratropium/albuterol 3ml nebule NEB SCH ×6 (02:31→23:28)
[2022-04-25] MEDS: VANCOMYCIN LEVEL IV SCH (03:00)
--- NOTE | 2022-04-25 04:37 | NUR ---
Took back pt care from Daniela STEWART. Pt resting quietly in bed w/ no s/s of discomfort noted.
[2022-04-25 06:30] VITALS: BP 135/58
[2022-04-25 07:04] LABS: BASOPHILS % (AUTO) 0.1 % (0-1); EOSINOPHILS # (AUTO) 0.3 X10'3 (0-0.9); EOSINOPHILS % (AUTO) 2.4 % (0-6); HEMOGLOBIN 8.6 g/dl (12.0-16.0); LYMPHOCYTES # (AUTO) 0.6 X10'3 (1.1-4.8); LYMPHOCYTES % (AUTO) 5.6 % (21-51); MEAN CORPUSCULAR HEMOGLOBIN 30.8 PG (27.0-31.0); MEAN CORPUSCULAR HGB CONC 33.1 g/dL (33.0-36.5); MEAN PLATELET VOLUME 7.2 FL (7.4-10.4); MONOCYTES # (AUTO) 0.8 X10'3 (0-0.9); MONOCYTES % (AUTO) 7.1 % (2-12); NEUTROPHILS # (AUTO) 9.4 X10'3 (1.8-7.7); NEUTROPHILS % (AUTO) 84.8 % (42-75); PLATELET COUNT 190 X10'3 (140-440); RED BLOOD COUNT 2.79 X10'6 (4.20-5.60); RED CELL DISTRIBUTION WIDTH 14.7 % (11.5-14.5); WHITE BLOOD COUNT 11.1 X10'3 (4.5-11.0)
--- NOTE | 2022-04-25 07:24 | NUR ---
Patient in room PCU 3018. I have received report from RUTHY Garcia and had the opportunity to ask questions and assume patient care. Pt was soiled. Cleaned up and removed infiltrated PIV. Will attempt later.
[2022-04-25] MEDS: budesonide 0.5mg/2ml UD nebule IH SCH ×2 (07:25→19:16)
[2022-04-25 07:39] LABS: ALANINE AMINOTRANSFERASE 43 U/L (12-78); ALBUMIN 2.6 G/DL (3.4-5.0); ALBUMIN/GLOBULIN RATIO 0.9 (1.1-1.5); ALKALINE PHOSPHATASE 112 IU/L (46-116); ANION GAP 14 (8-16); ASPARTATE AMINO TRANSFERASE 37 U/L (10-37); BILIRUBIN,TOTAL 0.4 MG/DL (0.1-1.0); BLOOD UREA NITROGEN 132 MG/DL (7-18); BUN/CREATININE RATIO 18.3 (6.6-38.0); CALCIUM 8.1 MG/DL (8.5-10.1); CHLORIDE 92 MMOL/L (99-107); CREATININE 7.23 MG/DL (0.40-0.90); GLUCOSE 84 MG/DL (70-104); SODIUM 128 MMOL/L (135-145); TOTAL CARBON DIOXIDE 21.8 MMOL/L (24-32); TOTAL PROTEIN 5.5 G/DL (6.4-8.2); VANCOMYCIN,RANDOM 14.5 UG/ML; eGFR 6 ML/MIN
[2022-04-25 07:47] LABS: POTASSIUM 6.1 MMOL/L (3.5-5.1)
[2022-04-25] MEDS ORDERED: vancomycin/NS 1 GM ADD-VANTAGE 250 ML IV ONE (07:50)
[2022-04-25] MEDS: potassium Cl 20 mEq SR tablet PO SCH (08:00)
[2022-04-25] MEDS: docusate sod 100mg capsule PO SCH ×2 (08:00→20:00)
[2022-04-25] MEDS: OMEGA-3/DHA/EPA/FISH OIL 1 EACH CAPSULE.DR PO SCH (08:00)
--- NOTE | 2022-04-25 08:01 | NUR ---
Paged PAGER ID: [phone] MESSAGE: [id number]. Homer. Critical K 6.1. Sylvia [phone]
[2022-04-25] MEDS ORDERED: mannitol 12.5gm/50mL VIAL IV ONE (08:25)
[2022-04-25] MEDS ORDERED: EPOETIN ALFA-EPBX 20,000 UNIT/ML 1 ML MDV IV ONE (08:25)
[2022-04-25] MEDS ORDERED: albumin (human) 25% 100ml IV 100 ML IV PRN ×2 (08:25→22:25)
[2022-04-25] MEDS ORDERED: heparin 1,000 units/ml 10ml inj HE ONE ×2 (08:30)
[2022-04-25] MEDS ORDERED: dextrose 50%-water 50ml dispensing syringe IV ONE ×2 (08:35→20:15)
[2022-04-25] MEDS ORDERED: insulin regular, human 10 units/0.1 ml syringe IV ONE ×2 (08:35→20:15)
--- NOTE | 2022-04-25 09:15 | NUR ---
Pt was c/o difficulty breathing. SPO2 80's on NC 4L. Applied Bipap. Will attempt to give plavix and ASA once patient has recovered. Paged RT
[2022-04-25] MEDS: methylPREDNISolone sod succ 125mg/2ml vial IV SCH ×2 (09:47→20:00)
[2022-04-25] MEDS: amiodarone 200mg tablet PO SCH (09:48)
[2022-04-25] MEDS: atorvastatin 20mg tablet PO SCH (09:48)
[2022-04-25] MEDS: levoTHYROXINE 75mcg tablet PO SCH (09:48)
--- NOTE | 2022-04-25 10:16 | NUR ---
RT paged. [id number]- Pt having SOB. Anxious. Can you please come to bedside. Zachary Hoyt Thanks.
[2022-04-25 11:00] VITALS: BP 128/41
--- NOTE | 2022-04-25 11:09 | NUR ---
Student documentation: I have reviewed and agree with all interventions, assessments performed and documented by Delaney student nurse.
[2022-04-25] MEDS: clopidogrel 75mg tablet PO SCH (11:52)
[2022-04-25] MEDS: aspirin 81mg, enteric-coated 1 TAB TABLET.DR PO SCH (11:52)
[2022-04-25] MEDS: piperacillin/tazo 3.375gm/50ml 50 ML IV SCH ×2 (11:53→20:00)
--- NOTE | 2022-04-25 13:00 | NUR ---
Problems reprioritized. Patient report given, questions answered & plan of care reviewed with RUTHY Brito.
[2022-04-25] MEDS ORDERED: fentaNYL/PF 50MCG/1 ML 2ML syringe ONE (13:39)
[2022-04-25] MEDS ORDERED: heparin 1,000unit/ml 10ml vial 10 ML ONE (13:45)
[2022-04-25] MEDS ORDERED: midazolam 1 mg/ML 2ml injection ONE (14:02)
[2022-04-25] MEDS ORDERED: diphenhydrAMINE 50 mg/ml inj ONE (14:11)
[2022-04-25 18:00] VITALS: BP 127/48
[2022-04-25] MEDS ORDERED: famotidine 10mg/ml inj IV SCH (18:06)
--- NOTE | 2022-04-25 19:21 | NUR ---
patient had procedure done today. came back to floor. patient was able to eat. patient used the bipap for several hours today. hr is still in the 40;s. spoke with brother and had call brother barrett. per patient okay to speak with brother.
--- NOTE | 2022-04-25 19:55 | NUR ---
Contacted Dr. Burnham regarding Critical Labs (K+ 6.8). Told me to contact Dr. Wilkes (food porter) to get orders. Before I could, Dr. Wilkes called PCU very upset that the day nurse did not contact the HD Nurse and inform them that the HD catheter had been placed so pt could get dialyzed. Dr. Wilkes called the HD Nurse himself. To my understanding, pt will be dialyzed tonight. Orders received to try to resolve critical K+ value now. Dr. Wilkes adamant about having incident reported. director of medicare, Desire, made aware of situation.
[2022-04-25 22:00] VITALS: BP 135/41
[2022-04-26 02:00] VITALS: BP 142/55
[2022-04-26] MEDS: methylPREDNISolone sod succ 125mg/2ml vial IV SCH ×4 (02:00→21:13)
[2022-04-26] MEDS: VANCOMYCIN LEVEL IV SCH (03:00)
[2022-04-26] MEDS: ipratropium/albuterol 3ml nebule NEB SCH ×6 (03:27→23:20)
[2022-04-26 06:00] VITALS: BP 138/33
[2022-04-26 06:32] LABS: BASOPHILS % (AUTO) 0.1 % (0-1); EOSINOPHILS % (AUTO) 0 % (0-6); HEMATOCRIT 27.5 % (35.0-45.0); HEMOGLOBIN 9.1 g/dl (12.0-16.0); LYMPHOCYTES # (AUTO) 0.3 X10'3 (1.1-4.8); LYMPHOCYTES % (AUTO) 1.9 % (21-51); MEAN CORPUSCULAR HEMOGLOBIN 30.2 PG (27.0-31.0); MEAN CORPUSCULAR HGB CONC 32.9 g/dL (33.0-36.5); MEAN CORPUSCULAR VOLUME 91.5 FL (78-98); MEAN PLATELET VOLUME 7.3 FL (7.4-10.4); MONOCYTES # (AUTO) 0.6 X10'3 (0-0.9); MONOCYTES % (AUTO) 4.7 % (2-12); NEUTROPHILS # (AUTO) 12.5 X10'3 (1.8-7.7); NEUTROPHILS % (AUTO) 93.3 % (42-75); PLATELET COUNT 200 X10'3 (140-440); RED CELL DISTRIBUTION WIDTH 14.5 % (11.5-14.5); WHITE BLOOD COUNT 13.4 X10'3 (4.5-11.0)
[2022-04-26 07:07] LABS: ALANINE AMINOTRANSFERASE 48 U/L (12-78); ALBUMIN 2.7 G/DL (3.4-5.0); ALBUMIN/GLOBULIN RATIO 0.8 (1.1-1.5); ALKALINE PHOSPHATASE 130 IU/L (46-116); ANION GAP 14 (8-16); ASPARTATE AMINO TRANSFERASE 34 U/L (10-37); BILIRUBIN,TOTAL 0.4 MG/DL (0.1-1.0); BLOOD UREA NITROGEN 94 MG/DL (7-18); BUN/CREATININE RATIO 15.9 (6.6-38.0); CALCIUM 7.8 MG/DL (8.5-10.1); CHLORIDE 95 MMOL/L (99-107); CREATININE 5.92 MG/DL (0.40-0.90); GLUCOSE 94 MG/DL (70-104); POTASSIUM 5.1 MMOL/L (3.5-5.1); SODIUM 133 MMOL/L (135-145); TOTAL CARBON DIOXIDE 23.8 MMOL/L (24-32); TOTAL PROTEIN 6.1 G/DL (6.4-8.2); VANCOMYCIN,RANDOM 24.2 UG/ML; eGFR 7 ML/MIN
[2022-04-26] MEDS: budesonide 0.5mg/2ml UD nebule IH SCH ×2 (07:30→19:41)
[2022-04-26] MEDS: OMEGA-3/DHA/EPA/FISH OIL 1 EACH CAPSULE.DR PO SCH (08:00)
[2022-04-26] MEDS: potassium Cl 20 mEq SR tablet PO SCH (08:00)
[2022-04-26] MEDS ORDERED: heparin 1,000 units/ml 10ml inj HE ONE ×2 (08:00)
[2022-04-26] MEDS: K and/or MAG REPLACEMENT MC SCH ×2 (08:00→20:00)
[2022-04-26] MEDS ORDERED: mannitol 12.5gm/50mL VIAL IV PRN (08:00)
[2022-04-26] MEDS ORDERED: EPOETIN ALFA-EPBX 20,000 UNIT/ML 1 ML MDV IV ONE (08:00)
--- NOTE | 2022-04-26 08:15 | NUR ---
Patient was supposed to receive a 1400 and 2000 yesterday and 0200 dose of solumedrol this AM and did not receive these doses. I spoke with the night RN Jose and asked why these 3 doses were missing and she stated that she gave a dose and documented it. I informed her that nothing had been charted in the EMAR or in the notes that this medication had been administered. MD will be made aware of the situation.
--- NOTE | 2022-04-26 08:24 | NUR ---
Paged Dr. Champagne regarding patient missing 3 doses of solumedrol. PAGER ID: [phone] MESSAGE: [id number]. Mirna Coronel. Patient did not receive 3 doses of solumedrol. Thank you. Leana BLISS x [phone]
[2022-04-26] MEDS: piperacillin/tazo 3.375gm/50ml 50 ML IV SCH ×2 (08:29→21:15)
[2022-04-26] MEDS: famotidine/PF 10 mg/ml inj IV SCH (09:26)
[2022-04-26] MEDS: ALPRAZolam 0.25mg tablet PO PRN ×3 (09:34→22:21)
[2022-04-26] MEDS: clopidogrel 75mg tablet PO SCH (09:35)
[2022-04-26] MEDS: levoTHYROXINE 75mcg tablet PO SCH (09:35)
[2022-04-26] MEDS: aspirin 81mg, enteric-coated 1 TAB TABLET.DR PO SCH (09:35)
[2022-04-26] MEDS: docusate sod 100mg capsule PO SCH ×2 (09:35→20:00)
[2022-04-26] MEDS: atorvastatin 20mg tablet PO SCH (09:35)
[2022-04-26 15:00] VITALS: BP 150/55
--- NOTE | 2022-04-26 15:08 | NUR ---
MESSAGE: [id number]-Mirna Coronel--pt has order for xanax 0.25 Q 8--edwards given @ 09:34, pt has terrible anxiety-can she have a dose more often?-Zonia robison [phone].
--- NOTE | 2022-04-26 17:36 | NUR ---
I AGREE WITH TERRY KYLE ASSESSMENT.
[2022-04-26 18:00] VITALS: BP 141/36
[2022-04-26] MEDS: ondansetron 4mg rapidly disintigrating tab PO PRN (22:21)
[2022-04-27 02:00] VITALS: BP 135/58
[2022-04-27] MEDS: methylPREDNISolone sod succ 125mg/2ml vial IV SCH ×4 (02:17→19:44)
[2022-04-27] MEDS: ipratropium/albuterol 3ml nebule NEB SCH ×6 (02:48→23:26)
[2022-04-27] MEDS: VANCOMYCIN LEVEL IV SCH (03:00)
--- NOTE | 2022-04-27 06:49 | NUR ---
Patient in room PCU 3018. I have received report from Jose and had the opportunity to ask questions and assume patient care.
[2022-04-27 06:55] VITALS: BP 148/70
[2022-04-27 07:14] LABS: BASOPHILS % (AUTO) 0.1 % (0-1); EOSINOPHILS % (AUTO) 0 % (0-6); HEMATOCRIT 27.7 % (35.0-45.0); HEMOGLOBIN 9.4 g/dl (12.0-16.0); LYMPHOCYTES # (AUTO) 0.3 X10'3 (1.1-4.8); LYMPHOCYTES % (AUTO) 3.3 % (21-51); MEAN CORPUSCULAR HEMOGLOBIN 31.1 PG (27.0-31.0); MEAN CORPUSCULAR HGB CONC 33.8 g/dL (33.0-36.5); MEAN CORPUSCULAR VOLUME 91.9 FL (78-98); MEAN PLATELET VOLUME 7.3 FL (7.4-10.4); MONOCYTES # (AUTO) 0.3 X10'3 (0-0.9); MONOCYTES % (AUTO) 2.9 % (2-12); NEUTROPHILS # (AUTO) 9.3 X10'3 (1.8-7.7); NEUTROPHILS % (AUTO) 93.7 % (42-75); PLATELET COUNT 213 X10'3 (140-440); RED BLOOD COUNT 3.01 X10'6 (4.20-5.60); RED CELL DISTRIBUTION WIDTH 14.2 % (11.5-14.5); WHITE BLOOD COUNT 9.9 X10'3 (4.5-11.0)
[2022-04-27] MEDS: budesonide 0.5mg/2ml UD nebule IH SCH ×2 (07:37→19:17)
[2022-04-27 07:56] LABS: ALANINE AMINOTRANSFERASE 47 U/L (12-78); ALBUMIN 2.7 G/DL (3.4-5.0); ALBUMIN/GLOBULIN RATIO 0.8 (1.1-1.5); ALKALINE PHOSPHATASE 142 IU/L (46-116); ANION GAP 13 (8-16); ASPARTATE AMINO TRANSFERASE 32 U/L (10-37); BILIRUBIN,TOTAL 0.4 MG/DL (0.1-1.0); BLOOD UREA NITROGEN 106 MG/DL (7-18); BUN/CREATININE RATIO 15.8 (6.6-38.0); CALCIUM 7.8 MG/DL (8.5-10.1); CHLORIDE 94 MMOL/L (99-107); GLUCOSE 172 MG/DL (70-104); POTASSIUM 5.2 MMOL/L (3.5-5.1); SODIUM 131 MMOL/L (135-145); TOTAL CARBON DIOXIDE 23.8 MMOL/L (24-32); TOTAL PROTEIN 6.2 G/DL (6.4-8.2); VANCOMYCIN,RANDOM 19.5 UG/ML; eGFR 6 ML/MIN
[2022-04-27] MEDS ORDERED: albumin (human) 25% 100ml IV 100 ML IV PRN (08:00)
[2022-04-27] MEDS: K and/or MAG REPLACEMENT MC SCH (08:00)
[2022-04-27] MEDS: OMEGA-3/DHA/EPA/FISH OIL 1 EACH CAPSULE.DR PO SCH (08:00)
[2022-04-27] MEDS: potassium Cl 20 mEq SR tablet PO SCH (08:00)
[2022-04-27] MEDS ORDERED: heparin 1,000 units/ml 10ml inj HE ONE ×2 (08:00)
[2022-04-27] MEDS: docusate sod 100mg capsule PO SCH ×2 (08:00→19:54)
[2022-04-27] MEDS ORDERED: EPOETIN ALFA-EPBX 20,000 UNIT/ML 1 ML MDV IV ONE (08:00)
[2022-04-27] MEDS: famotidine/PF 10 mg/ml inj IV SCH (09:24)
[2022-04-27] MEDS: piperacillin/tazo 3.375gm/50ml 50 ML IV SCH ×2 (09:25→19:43)
[2022-04-27] MEDS: aspirin 81mg, enteric-coated 1 TAB TABLET.DR PO SCH (09:25)
[2022-04-27] MEDS: atorvastatin 20mg tablet PO SCH (09:27)
[2022-04-27] MEDS: levoTHYROXINE 75mcg tablet PO SCH (09:27)
[2022-04-27] MEDS: clopidogrel 75mg tablet PO SCH (09:27)
[2022-04-27] MEDS: ALPRAZolam 0.25mg tablet PO PRN (09:45)
[2022-04-27 11:00] VITALS: BP 112/65
[2022-04-27 13:52] LABS: HBSAG SCREEN Negative (Negative)
[2022-04-27] MEDS: ALPRAZolam 0.25mg tablet PO SCH ×2 (15:54→19:44)
[2022-04-27 18:00] VITALS: BP 128/70
--- NOTE | 2022-04-27 18:26 | NUR ---
Problems reprioritized. Patient report given, questions answered & plan of care reviewed with Ashley.
[2022-04-28 02:00] VITALS: BP 118/58
[2022-04-28] MEDS: VANCOMYCIN LEVEL IV SCH (03:00)
[2022-04-28] MEDS: ipratropium/albuterol 3ml nebule NEB SCH ×6 (03:05→23:34)
[2022-04-28 07:19] LABS: BASOPHILS % (AUTO) 0.1 % (0-1); EOSINOPHILS % (AUTO) 0 % (0-6); HEMATOCRIT 27.8 % (35.0-45.0); HEMOGLOBIN 9.2 g/dl (12.0-16.0); LYMPHOCYTES # (AUTO) 0.5 X10'3 (1.1-4.8); LYMPHOCYTES % (AUTO) 3.4 % (21-51); MEAN CORPUSCULAR HEMOGLOBIN 30.4 PG (27.0-31.0); MEAN CORPUSCULAR VOLUME 92.2 FL (78-98); MEAN PLATELET VOLUME 7.2 FL (7.4-10.4); MONOCYTES # (AUTO) 0.8 X10'3 (0-0.9); MONOCYTES % (AUTO) 5.7 % (2-12); NEUTROPHILS # (AUTO) 13.1 X10'3 (1.8-7.7); NEUTROPHILS % (AUTO) 90.8 % (42-75); PLATELET COUNT 238 X10'3 (140-440); RED BLOOD COUNT 3.01 X10'6 (4.20-5.60); RED CELL DISTRIBUTION WIDTH 14.6 % (11.5-14.5); WHITE BLOOD COUNT 14.5 X10'3 (4.5-11.0)
[2022-04-28 07:45] LABS: ALANINE AMINOTRANSFERASE 44 U/L (12-78); ALBUMIN 2.8 G/DL (3.4-5.0); ALBUMIN/GLOBULIN RATIO 0.8 (1.1-1.5); ANION GAP 12 (8-16); ASPARTATE AMINO TRANSFERASE 29 U/L (10-37); BILIRUBIN,TOTAL 0.5 MG/DL (0.1-1.0); BLOOD UREA NITROGEN 74 MG/DL (7-18); BUN/CREATININE RATIO 14.5 (6.6-38.0); CALCIUM 8.2 MG/DL (8.5-10.1); CHLORIDE 98 MMOL/L (99-107); CREATININE 5.11 MG/DL (0.40-0.90); GLUCOSE 165 MG/DL (70-104); POTASSIUM 4.6 MMOL/L (3.5-5.1); SODIUM 137 MMOL/L (135-145); TOTAL CARBON DIOXIDE 26.7 MMOL/L (24-32); TOTAL PROTEIN 6.4 G/DL (6.4-8.2); VANCOMYCIN,RANDOM 15.9 UG/ML; eGFR 8 ML/MIN
[2022-04-28 07:47] LABS: ALKALINE PHOSPHATASE 149 IU/L (46-116)
[2022-04-28] MEDS: potassium Cl 20 mEq SR tablet PO SCH (08:00)
[2022-04-28] MEDS: ALPRAZolam 0.25mg tablet PO SCH ×4 (08:00→20:19)
[2022-04-28] MEDS: methylPREDNISolone sod succ 125mg/2ml vial IV SCH ×4 (08:00→20:21)
[2022-04-28] MEDS: K and/or MAG REPLACEMENT MC SCH ×2 (08:00→20:00)
[2022-04-28] MEDS: docusate sod 100mg capsule PO SCH ×2 (08:00→20:00)
[2022-04-28] MEDS: budesonide 0.5mg/2ml UD nebule IH SCH ×2 (08:02→19:23)
[2022-04-28] MEDS: piperacillin/tazo 3.375gm/50ml 50 ML IV SCH ×2 (08:57→20:24)
[2022-04-28] MEDS: OMEGA-3/DHA/EPA/FISH OIL 1 EACH CAPSULE.DR PO SCH (08:58)
[2022-04-28] MEDS: aspirin 81mg, enteric-coated 1 TAB TABLET.DR PO SCH (08:58)
[2022-04-28] MEDS: famotidine/PF 10 mg/ml inj IV SCH (08:58)
[2022-04-28] MEDS: levoTHYROXINE 75mcg tablet PO SCH (08:58)
[2022-04-28] MEDS: clopidogrel 75mg tablet PO SCH (08:58)
[2022-04-28] MEDS: atorvastatin 20mg tablet PO SCH (08:58)
[2022-04-28] MEDS: ondansetron 4mg rapidly disintigrating tab PO PRN (09:13)
[2022-04-28] MEDS: metoprolol succinate 25mg (24-HOUR) SR. Tablet PO SCH (11:51)
--- NOTE | 2022-04-28 14:13 | NUR ---
F/u 04/28: Pt PO further declining now 0% majority of meals w/ occasional 25% vs NPO past 7 days not meeting needs. Pt s/p TDC and first HD 04/25 per EMR. LBM 04/28 large w/ diarrhea per RN today. Per RN, pt w/ essential tremors and would benefit from chop all to assist intake; dietary notified. Per RN/EMR pt w/ occasional nausea as well; likely influencing PO. Pt seen by RD at bedside; pt reports lower appetite, needing food chopped, and if breathing treatments "aren't done right" anything she puts in her mouth overton impacting PO trends. RD verbally educated pt on nutrition importance especially while on HD; pt is agreeable to try Nepro ONS TIDWM MD paged regarding ONS verification needs. Pt lunch tray at bedside which RD offered to chop for pt but pt declined stating she won't eat tray given mouth burn; only fruit cup and some salad consumed. Pt has no food preferences and declines adaptive wear at this time; RD encouraged pt to make food preferences known. RD notified RN of pt reported mouth burning; RN reports will assess for thrush. Given poor intake 7 days, mild weakness, and BLE +1 edema pt meets non-severe malnutrition criteria; MD notified. Will monitor for further PO acceptance and nutrition intervention needs this admit. Recommendations: 1) Continue heart healthy diet/1.5L fluid-restricted diet per MD; chop all for ease of PO w/ essential tremors-pt declines adaptive wear at this time 2) IF poor intake persists liberalize to regular/fluid restricted diet 3) Nepro TIDWM; pending physician verification in EMR 4) encourage PO meals/ONS 5) Routine bowel care 6) Scaled weight this admit; subsequent weights w/ HD Addendum: 04/28/22 at [address] Amended: Links added.
[2022-04-28 15:59] VITALS: BP 124/58
[2022-04-28 18:00] VITALS: BP 134/77
[2022-04-29] MEDS: methylPREDNISolone sod succ 125mg/2ml vial IV SCH ×5 (01:40→20:37)
[2022-04-29] MEDS: ALPRAZolam 0.25mg tablet PO SCH ×4 (01:41→20:37)
[2022-04-29] MEDS: VANCOMYCIN LEVEL IV SCH (03:00)
[2022-04-29 03:24] VITALS: BP 131/67
--- NOTE | 2022-04-29 06:33 | NUR ---
Problems reprioritized. Patient report given, questions answered & plan of care reviewed with Mary BLISS.
[2022-04-29] MEDS: budesonide 0.5mg/2ml UD nebule IH SCH ×2 (06:59→19:53)
[2022-04-29 07:00] VITALS: BP 128/66
[2022-04-29] MEDS: ipratropium/albuterol 3ml nebule NEB SCH ×5 (07:00→23:28)
[2022-04-29 07:07] LABS: ALANINE AMINOTRANSFERASE 46 U/L (12-78); ALBUMIN 2.9 G/DL (3.4-5.0); ALBUMIN/GLOBULIN RATIO 0.8 (1.1-1.5); ALKALINE PHOSPHATASE 153 IU/L (46-116); ANION GAP 13 (8-16); ASPARTATE AMINO TRANSFERASE 39 U/L (10-37); BILIRUBIN,TOTAL 0.4 MG/DL (0.1-1.0); BLOOD UREA NITROGEN 92 MG/DL (7-18); BUN/CREATININE RATIO 14.8 (6.6-38.0); CALCIUM 8.3 MG/DL (8.5-10.1); CHLORIDE 96 MMOL/L (99-107); CREATININE 6.23 MG/DL (0.40-0.90); GLUCOSE 193 MG/DL (70-104); POTASSIUM 4.8 MMOL/L (3.5-5.1); SODIUM 134 MMOL/L (135-145); TOTAL CARBON DIOXIDE 25.3 MMOL/L (24-32); TOTAL PROTEIN 6.4 G/DL (6.4-8.2); eGFR 7 ML/MIN
[2022-04-29 07:11] LABS: BASOPHILS % (AUTO) 0.1 % (0-1); EOSINOPHILS % (AUTO) 0 % (0-6); HEMATOCRIT 26.5 % (35.0-45.0); HEMOGLOBIN 8.9 g/dl (12.0-16.0); LYMPHOCYTES # (AUTO) 0.4 X10'3 (1.1-4.8); LYMPHOCYTES % (AUTO) 2.6 % (21-51); MEAN CORPUSCULAR HEMOGLOBIN 30.9 PG (27.0-31.0); MEAN CORPUSCULAR HGB CONC 33.4 g/dL (33.0-36.5); MEAN CORPUSCULAR VOLUME 92.4 FL (78-98); MEAN PLATELET VOLUME 7.3 FL (7.4-10.4); MONOCYTES # (AUTO) 0.6 X10'3 (0-0.9); MONOCYTES % (AUTO) 4.1 % (2-12); NEUTROPHILS # (AUTO) 14.2 X10'3 (1.8-7.7); NEUTROPHILS % (AUTO) 93.2 % (42-75); PLATELET COUNT 262 X10'3 (140-440); RED BLOOD COUNT 2.87 X10'6 (4.20-5.60); RED CELL DISTRIBUTION WIDTH 14.6 % (11.5-14.5); WHITE BLOOD COUNT 15.3 X10'3 (4.5-11.0)
[2022-04-29] MEDS: K and/or MAG REPLACEMENT MC SCH ×2 (08:00→20:00)
[2022-04-29] MEDS: docusate sod 100mg capsule PO SCH ×2 (08:00→20:00)
[2022-04-29] MEDS: OMEGA-3/DHA/EPA/FISH OIL 1 EACH CAPSULE.DR PO SCH (08:00)
[2022-04-29] MEDS: potassium Cl 20 mEq SR tablet PO SCH (08:00)
[2022-04-29] MEDS: aspirin 81mg, enteric-coated 1 TAB TABLET.DR PO SCH (08:20)
[2022-04-29] MEDS: clopidogrel 75mg tablet PO SCH (08:21)
[2022-04-29] MEDS: levoTHYROXINE 75mcg tablet PO SCH (08:22)
[2022-04-29] MEDS: atorvastatin 20mg tablet PO SCH (08:22)
[2022-04-29] MEDS: piperacillin/tazo 3.375gm/50ml 50 ML IV SCH (08:23)
[2022-04-29] MEDS: metoprolol succinate 25mg (24-HOUR) SR. Tablet PO SCH (08:23)
[2022-04-29] MEDS: famotidine/PF 10 mg/ml inj IV SCH (08:24)
[2022-04-29 11:00] VITALS: BP 128/71
[2022-04-29 15:00] VITALS: BP 153/70
--- NOTE | 2022-04-29 17:41 | NUR ---
Page Sent promotional table spacer PAGER ID: [phone] MESSAGE: [id number] Coronel. RT suggests adding mucinex for patient . She has a moist cough but never coughs anything up . Mary@[phone] (119 character message out of a maximum of 240)
[2022-04-29] MEDS: guaiFENesin ER 600mg tablet PO SCH (20:37)
[2022-04-29 22:00] VITALS: BP 153/92
[2022-04-30] MEDS: ALPRAZolam 0.25mg tablet PO SCH ×2 (01:58→07:13)
[2022-04-30 02:00] VITALS: BP 134/70
[2022-04-30] MEDS: ipratropium/albuterol 3ml nebule NEB SCH ×4 (02:55→14:43)
[2022-04-30] MEDS: VANCOMYCIN LEVEL IV SCH (03:00)
--- NOTE | 2022-04-30 07:04 | NUR ---
page to respiratory 6157U Homer. Patient needs breathing treatment. States she cannot breathe. Mary @[phone]
[2022-04-30 07:24] LABS: VANCOMYCIN,RANDOM 13.3 UG/ML
[2022-04-30] MEDS: budesonide 0.5mg/2ml UD nebule IH SCH (07:27)
[2022-04-30] MEDS: OMEGA-3/DHA/EPA/FISH OIL 1 EACH CAPSULE.DR PO SCH (08:00)
[2022-04-30] MEDS: potassium Cl 20 mEq SR tablet PO SCH (08:00)
[2022-04-30] MEDS: guaiFENesin ER 600mg tablet PO SCH ×2 (08:00→20:00)
[2022-04-30] MEDS ORDERED: albumin (human) 25% 100ml IV 100 ML IV PRN (08:00)
[2022-04-30] MEDS ORDERED: heparin 1,000 units/ml 10ml inj HE ONE ×2 (08:00)
[2022-04-30] MEDS: docusate sod 100mg capsule PO SCH ×2 (08:00→20:00)
[2022-04-30] MEDS: metoprolol succinate 25mg (24-HOUR) SR. Tablet PO SCH (08:00)
[2022-04-30] MEDS: K and/or MAG REPLACEMENT MC SCH ×2 (08:00→20:00)
[2022-04-30] MEDS ORDERED: EPOETIN ALFA-EPBX 20,000 UNIT/ML 1 ML MDV IV ONE (08:00)
[2022-04-30 08:39] LABS: BASOPHILS % (AUTO) 0.2 % (0-1); EOSINOPHILS % (AUTO) 0.1 % (0-6); HEMATOCRIT 26.1 % (35.0-45.0); HEMOGLOBIN 8.5 g/dl (12.0-16.0); LYMPHOCYTES # (AUTO) 0.3 X10'3 (1.1-4.8); LYMPHOCYTES % (AUTO) 1.8 % (21-51); MEAN CORPUSCULAR HEMOGLOBIN 30.6 PG (27.0-31.0); MEAN CORPUSCULAR HGB CONC 32.7 g/dL (33.0-36.5); MEAN CORPUSCULAR VOLUME 93.5 FL (78-98); MEAN PLATELET VOLUME 7.5 FL (7.4-10.4); MONOCYTES # (AUTO) 1.1 X10'3 (0-0.9); MONOCYTES % (AUTO) 6.2 % (2-12); NEUTROPHILS # (AUTO) 16.3 X10'3 (1.8-7.7); NEUTROPHILS % (AUTO) 91.7 % (42-75); PLATELET COUNT 250 X10'3 (140-440); RED BLOOD COUNT 2.79 X10'6 (4.20-5.60); RED CELL DISTRIBUTION WIDTH 14.8 % (11.5-14.5); WHITE BLOOD COUNT 17.8 X10'3 (4.5-11.0)
[2022-04-30 08:44] LABS: ALANINE AMINOTRANSFERASE 50 U/L (12-78); ALBUMIN 2.8 G/DL (3.4-5.0); ALBUMIN/GLOBULIN RATIO 0.8 (1.1-1.5); ALKALINE PHOSPHATASE 144 IU/L (46-116); ANION GAP 17 (8-16); ASPARTATE AMINO TRANSFERASE 41 U/L (10-37); BILIRUBIN,TOTAL 0.4 MG/DL (0.1-1.0); BLOOD UREA NITROGEN 117 MG/DL (7-18); BUN/CREATININE RATIO 15.3 (10.0-20.0); CALCIUM 8.6 MG/DL (8.5-10.1); CHLORIDE 95 MMOL/L (99-107); CREATININE 7.65 MG/DL (0.40-0.90); GLUCOSE 160 MG/DL (70-104); POTASSIUM 5.2 MMOL/L (3.5-5.1); SODIUM 134 MMOL/L (135-145); TOTAL CARBON DIOXIDE 22.2 MMOL/L (24-32); TOTAL PROTEIN 6.1 G/DL (6.4-8.2); eGFR 5 ML/MIN
[2022-04-30] MEDS: levoTHYROXINE 75mcg tablet PO SCH (10:31)
[2022-04-30] MEDS: clopidogrel 75mg tablet PO SCH (10:34)
[2022-04-30] MEDS: aspirin 81mg, enteric-coated 1 TAB TABLET.DR PO SCH (10:34)
[2022-04-30] MEDS: atorvastatin 20mg tablet PO SCH (10:35)
[2022-04-30] MEDS: methylPREDNISolone sod succ 125mg/2ml vial IV SCH ×2 (10:39→19:45)
[2022-04-30] MEDS: famotidine/PF 10 mg/ml inj IV SCH (10:40)
[2022-04-30 11:00] VITALS: BP 153/79
--- NOTE | 2022-04-30 11:01 | NUR ---
page to respiratory [id number] Homer. Pt needs to go up to dialysis but cannot tolerate being off her bipap. Can we set up a bipap in the dialysis room upstairs. Mary@[phone]
--- NOTE | 2022-04-30 11:48 | NUR ---
Approached by director of pharmacy dropping off patients heparin, declined to take heparin. There were no tech in room, and a faxed sheet was brought with the heparin and pharmacy stated "there were NO ORDERS for it or a doctors signature."
--- NOTE | 2022-04-30 12:03 | NUR ---
Dr. Galdamez gave me a one time telephone order for 10 ml of heparin for dialysis chief equipment technician to run in the diaylsis machine
[2022-04-30] MEDS ORDERED: heparin 1,000unit/ml 10ml vial 10 ML IV ONE (12:05)
--- NOTE | 2022-04-30 12:58 | NUR ---
page to respiratory 8085C Homer. Patient requesting breathing treatment stating she can't breathe. [email or web address]
--- NOTE | 2022-04-30 13:03 | NUR ---
page to RT 4201B ant . Please come STAT to see this patient . Mary @[phone]
--- NOTE | 2022-04-30 13:07 | NUR ---
Page Sent promotional table spacer PAGER ID: [phone] MESSAGE: [phone] Homer . Patient is freaking out . I don't think she can swallow scheduled xanax . I need an IV push of ativan . CHOLO please . Mary @[phone] (145 character message out of a maximum of 240)
[2022-04-30] MEDS ORDERED: LORazepam 2 mg/ml vial IV ONE (13:20)
[2022-04-30 13:22] LABS: ABG BASE EXCESS -4.3 mmol/L (-2.0-2.0); ABG OXYGEN SATURATION 97.6 % (94-97); ABG PCO2 (T) 68.1 mmHg (32.0-45.0); ABG PO2 (T) 129.9 mmHg (75.0-100.0); ALLEN'S TEST POSITIVE; FCOHb 0.3 % (0.0-3.9); FMetHb 0.3 % (0.0-1.5); TOTAL HEMOGLOBIN 11.8 G/dl (12.0-16.0)
--- NOTE | 2022-04-30 13:49 | NUR ---
INCREASED IPAP 18 FOR CO2 68 PER RAPID PROTOCOL Addendum: 04/30/22 at 1349 by Abhishek Oliver RT Amended: Links added.
--- NOTE | 2022-04-30 13:51 | NUR ---
Page Sent promotional table spacer PAGER ID: [phone] MESSAGE: [phone] Homer . Requesting more ativan per rapid RN and RT . pt HR now in 130s. Mary @[phone] (91 character message out of a maximum of 240)
[2022-04-30 14:14] LABS: ABG BASE EXCESS -4.3 mmol/L (-2.0-2.0); ABG HCO3 24.6 mmol/L (22.0-26.0); ABG OXYGEN SATURATION 99.1 % (94-97); ABG PCO2 (T) 65.1 mmHg (32.0-45.0); ABG PO2 (T) 261.4 mmHg (75.0-100.0); ALLEN'S TEST POSITIVE; FCOHb 0.3 % (0.0-3.9); FMetHb 0.3 % (0.0-1.5); FO2Hb 98.5 % (94-97); TOTAL HEMOGLOBIN 11.2 G/dl (12.0-16.0)
[2022-04-30] MEDS ORDERED: LORazepam 2 mg/ml vial IV PRN (14:15)
--- NOTE | 2022-04-30 14:43 | NUR ---
Patient wanted to be on bipap since this morning. She was comfortable until I gave morning meds. We gave aspirin, plavix and synthroid. She desated to 80 o the bipap and on 5L for less than 5 min. We immediately put her on the bipap and I turned to O2 up to 45 from 35 % to help her recover. She recovered fine but was not really able to tolerate being off the bipap today.Shortly afterwards we started getting ready for her HD treatment today. We ran into some delays as this is a new process at the hospital. I paged respiratory to help facilitate a move up to dialysis room and notified HD tech that patient would not be able to tolerate being off bipap. The HD tech called back and said we could do treatment in the room. They started the move of equipment downstairs shortly afterward. The accelerator technician set everything up and I accessed her TDC. Patient was in mild respiratory distress but it was thought dialysis would help to pull off the extra fluid and improve her breathing . They started the treatment and it was about an hour in when the HD tech flagged me down and said the patient needed something. Patient was panicking and stated she could not breathe and wanted a breathing treatment. She was still on the bipap and oxygen was at 90%. i did my best to try to calm her and went to page RT. At this time I asked my tank charger Miller to go put eyes on patient. At this time her work of breathing had dramatically increased and she was using all of her accessory muscles to breathe. There was no monitoring going on by the tele nail galvanizer at this time. Miller increased O2 up on bipap and asked if I paged respiratory stat. I had not so I went out to do so and RTs showed up very quickly. I then paged out a rapid response because even though respiratory was there i needed orders for an ABG , CXR and something to calm patient down. Dr. morris was notified. RT took over bipapa setting and increased o2 to 100 and did they ABG. IT was found that ph and Co2 were a problem and Dr. Martin was contacted for consult and possible tx to ICU for intubation. i asked HD tech if HD telescope operator had been contacted and they said no . After several people left the room they contacted HD telescope operator and she decided HD should continue and she would call Dr. Fernandez. Patient HR shot up to 130s-140s Bp was elevated and work of breathing did not get any better. She was still struggling. Family was in cooper. Dr Martin went into cooper to talk with family about changing code status to DNR with CC . I called Dr. Fernandez and notified him of patient HR . Dr. Fernandez told me to terminate HD at that time. It ran for about an hour and a half. I notified HD tech and had them contact their telescope operator . Dr. Mathis came to the floor shortly after to check on patient . Hd was stopped and lines deaccessed and heparinized . HD Rn was notified by [employer] that HD was complete and she did post HD interview which basically consisted of me giving her the patients vital signs. Family is at bedside continuing to monitor patient. DNR with comfort care was discussed with the family by DR. Martin and he told me he would put in a note and to change patient's code status. He also told me morphine would be available and to not be afraid to give prn when it was available. Family and signifigant other are at bedside. Daughter Sarai has been notified and is on her way. Family was notified if CC measures are ordered it is their choice when RT will remove bipap. Addendum: 04/30/22 at 1523 by Mary Fernández RN During RR patient RR consistently in 30s .
[2022-04-30 15:00] VITALS: BP 139/68
--- NOTE | 2022-04-30 15:23 | NUR ---
Family has been notified that DNR with CC has been ordered and when they are ready we can remove bipap. Patient has not regained consciousness since after ativan was administered during the rapid and patient calmed down. Patient does respond to pain.
[2022-04-30] MEDS: morphine 10mg/ml inj. IV PRN ×6 (15:44→21:17)
--- NOTE | 2022-04-30 16:22 | NUR ---
Patient's son notified me that they are ready to remove bipap. RT paged. I am getting CC meds ready for admin.
--- NOTE | 2022-04-30 16:50 | NUR ---
Patient has thready but strong pulse and is still taking agonal breaths
--- NOTE | 2022-04-30 17:12 | NUR ---
Patient still has palpable but thready pulse still taking agonal breaths. Family at bedside.
--- NOTE | 2022-04-30 18:00 | NUR ---
Patient in room PCU 3018. I have received report from Shazia BLISS and had the opportunity to ask questions and assume patient care.
--- NOTE | 2022-04-30 18:08 | NUR ---
patient still has pulse and is agonal breathing. Vitals signs from telecommunications switch technician reports HR and RR from rapid response and then spo2 after connected to central monitoring entered in chart . Patient was on dialysis at time of rapid . Dialysis Q15 minute vitals missing from chart.
--- NOTE | 2022-04-30 18:52 | NUR ---
Problems reprioritized. Patient report given, questions answered & plan of care reviewed with Destinee BLISS. Family at bedside.
[2022-04-30] MEDS ORDERED: apixaban 5mg tablet PO SCH (20:00)
--- NOTE | 2022-04-30 22:00 | NUR ---
RN IS TO DOCUMENT YES TO ALL APPLICABLE AREAS Pronouncement of : 1. Time Physician Notified:[id number] 2. Date of :04/30/22 3. Time of : 2154 4. DNR/Withdraw life support documented: YES 5. Monitor strip has been placed on chart:N/A 6. Assessment process is of one-minute duration and includes following criteria: a) Patient is unresponsive to all stimuli: YES b) Pupils fixed and non-reactive: YES c) Auscultation of precordium reveals absence of heart tones: YES d) Auscultation of lungs reveals absence of breath sounds: YES e) Absence of blood pressure / all vital signs: YES f) QRS complexes are not present on monitor / EKG strip: TELE WAS DISCONTINUED AT 1530 g) Pacer spikes without capture: N/A 4. Comments: Pt's son and [id number] were at the bedside when pt took her last breath. was verified by 2 RNs Destinee White and Kisha charge nurse.
--- NOTE | 2022-04-30 22:03 | NUR ---
PAGED DR. SANTIAGO FOR ROOM 3018B, CLEMENTE JOY-- AT 2150 DNR AND ON COMFORT CARE, EXPECTED. THANK YOU ADDI [facility] [id number]
== END 2022-04-30 21:55 | DRG 246 ==
LOC: ER 20:48 → ED HOLD 23:31 → PCU 3S 04-13 01:00
PROVIDERS: ADMIT Internal Medicine; ATTEND Family Medicine
PROC: 5A09357 Assistance with Respiratory Ventilation, Less than 24 Consecutive Hours, Continuous Positive Airway Pressure (ICD-10-PCS; 2022-04-13)
PROC: 4A023N7 Measurement of Cardiac Sampling and Pressure, Left Heart, Percutaneous Approach (ICD-10-PCS; principal; 2022-04-19)
PROC: B2111ZZ Fluoroscopy of Multiple Coronary Arteries using Low Osmolar Contrast (ICD-10-PCS; 2022-04-19)
PROC: 0271356 Dilation of Coronary Artery, Two Arteries, Bifurcation, with Two Drug-eluting Intraluminal Devices, Percutaneous Approach (ICD-10-PCS; 2022-04-20)
PROC: 02C03ZZ Extirpation of Matter from Coronary Artery, One Artery, Percutaneous Approach (ICD-10-PCS; 2022-04-20)
PROC: 02F03ZZ Fragmentation in Coronary Artery, One Artery, Percutaneous Approach (ICD-10-PCS; 2022-04-20)
PROC: 4A023N7 Measurement of Cardiac Sampling and Pressure, Left Heart, Percutaneous Approach (ICD-10-PCS; 2022-04-20)
PROC: B2111ZZ Fluoroscopy of Multiple Coronary Arteries using Low Osmolar Contrast (ICD-10-PCS; 2022-04-20)
PROC: B240ZZ3 Ultrasonography of Single Coronary Artery, Intravascular (ICD-10-PCS; 2022-04-20)
PROC: B240ZZ3 Ultrasonography of Single Coronary Artery, Intravascular (ICD-10-PCS; 2022-04-20)
PROC: 5A09357 Assistance with Respiratory Ventilation, Less than 24 Consecutive Hours, Continuous Positive Airway Pressure (ICD-10-PCS; 2022-04-24)
PROC: 5A09357 Assistance with Respiratory Ventilation, Less than 24 Consecutive Hours, Continuous Positive Airway Pressure (ICD-10-PCS; 2022-04-25)
PROC: 5A1D70Z Performance of Urinary Filtration, Intermittent, Less than 6 Hours Per Day (ICD-10-PCS; 2022-04-25)
PROC: 5A09357 Assistance with Respiratory Ventilation, Less than 24 Consecutive Hours, Continuous Positive Airway Pressure (ICD-10-PCS; 2022-04-26)
PROC: 0JH63XZ Insertion of Tunneled Vascular Access Device into Chest Subcutaneous Tissue and Fascia, Percutaneous Approach (ICD-10-PCS; 2022-04-26)
PROC: 02H633Z Insertion of Infusion Device into Right Atrium, Percutaneous Approach (ICD-10-PCS; 2022-04-26)
PROC: B548ZZA Ultrasonography of Superior Vena Cava, Guidance (ICD-10-PCS; 2022-04-26)
PROC: 5A09357 Assistance with Respiratory Ventilation, Less than 24 Consecutive Hours, Continuous Positive Airway Pressure (ICD-10-PCS; 2022-04-27)
PROC: 5A1D70Z Performance of Urinary Filtration, Intermittent, Less than 6 Hours Per Day (ICD-10-PCS; 2022-04-27)
PROC: 5A09357 Assistance with Respiratory Ventilation, Less than 24 Consecutive Hours, Continuous Positive Airway Pressure (ICD-10-PCS; 2022-04-29)
PROC: 5A09357 Assistance with Respiratory Ventilation, Less than 24 Consecutive Hours, Continuous Positive Airway Pressure (ICD-10-PCS; 2022-04-30)
DX: I21.4 Non-ST elevation (NSTEMI) myocardial infarction (principal); I50.23 Acute on chronic systolic (congestive) heart failure; J96.21 Acute and chronic respiratory failure with hypoxia; J96.22 Acute and chronic respiratory failure with hypercapnia; N17.0 Acute kidney failure with tubular necrosis; N18.6 End stage renal disease; I42.9 Cardiomyopathy, unspecified; I48.21 Permanent atrial fibrillation; J44.1 Chronic obstructive pulmonary disease with (acute) exacerbation; K56.7 Ileus, unspecified; I48.92 Unspecified atrial flutter; I13.2 Hypertensive heart and chronic kidney disease with heart failure and with stage 5 chronic kidney disease, or end stage renal disease; Z51.5 Encounter for palliative care; Z66 Do not resuscitate; Z20.822 Contact with and (suspected) exposure to COVID-19; E03.9 Hypothyroidism, unspecified; E66.9 Obesity, unspecified; E78.5 Hyperlipidemia, unspecified; F17.210 Nicotine dependence, cigarettes, uncomplicated; R00.0 Tachycardia, unspecified; R00.1 Bradycardia, unspecified; F41.1 Generalized anxiety disorder; G89.29 Other chronic pain; I25.10 Atherosclerotic heart disease of native coronary artery without angina pectoris; I44.0 Atrioventricular block, first degree; I45.4 Nonspecific intraventricular block; I73.9 Peripheral vascular disease, unspecified; N14.11 Contrast-induced nephropathy; D72.829 Elevated white blood cell count, unspecified; T50.8X5A Adverse effect of diagnostic agents, initial encounter; Z79.01 Long term (current) use of anticoagulants; Z79.899 Other long term (current) drug therapy; Z82.49 Family history of ischemic heart disease and other diseases of the circulatory system; Z83.3 Family history of diabetes mellitus; Z86.73 Personal history of transient ischemic attack (TIA), and cerebral infarction without residual deficits; Z99.81 Dependence on supplemental oxygen; Z68.28 Body mass index [BMI] 28.0-28.9, adult; Z88.2 Allergy status to sulfonamides; Z88.8 Allergy status to other drugs, medicaments and biological substances; Z79.82 Long term (current) use of aspirin; T40.2X5A Adverse effect of other opioids, initial encounter; Y92.230 Patient room in hospital as the place of occurrence of the external cause; K59.00 Constipation, unspecified; E87.5 Hyperkalemia
CPT/HCPCS: 36558; 92924; 92978; 92979; 93306; 93458; 96365; 96367; 96375; 99285; C9600; C9601; 36415; 36600; 71045; 71046; 74176; 76937; 77001; 80048; 80053; 80061; 80202; 81001; 82803; 82948; 83036; 83605; 83735; 83880; 84100; 84132; 84145; 84443; 84484; 85007; 85018; 85025; 85347; 85610; 85730; 85732; 86885; 86900; 86901; 87040; 87081; 87340; 87502; 87503; 87635; 90935; 93005; 94060; 94640; 94660; 94760; 97110; 97116; 97161; 97530; 97535; 99152; 99153; A4615; A4620; A4624; A6213; A6258; A6449; A9270; C1724; C1725; C1750; C1751; C1753; C1761; C1769; C1874; C1894; C9803; E1594; G0378; J0282; J0456; J0461; J0696; J1200; J1644; J1650; J1815; J1940; J2060; J2150; J2250; J2274; J2405; J2543; J2765; J2920; J2930; J3010; J3370; J3490; J7030; J7040; J7512; Q4081; Q9967